=== PATIENT | male | born 1970 | race Caucasian/White ===

== ENCOUNTER 2017-03-27 19:12 | Emergency (ER) | payer SELFPAY ==
[2017-03-27 19:42] VITALS: BP 139/93
--- NOTE | 2017-03-27 20:33 | ER Document Report ---
HPI - HPI Patient complains to provider of: bilateral arm pain Onset: Other - months Onset/Duration: Persistent, Waxing and waning Quality of pain: Achy, Burning Pain Level: 5 Context: 46 yo male with hx cervical spine "problems" is c/o not being able to sleep due to Left medial elbow pain that radiates to cause fingertip numbness in left arm for months, also right wrist pain, intermittent numbness in fingers of right hand also. Used to see dr. rausch recently went to [facility] and was started on neurontin, ultram. He wants it fixed. He does not want to go to pain management, doesn't want to take mediation, but is asking for relief of pain tonight so he can sleep. No new symptoms. No chest pain or SOB. He is pettit and hx of neck and low back pain. Associated Symptoms: None Exacerbated by: Movement Relieved by: Denies - ROS ROS below otherwise negative: Yes Systems Reviewed and Negative: Yes All other systems reviewed and negative - DERM Skin Color: Normal Past Medical History - General Information source: Patient - Social History Smoking Status: Unknown if Ever Smoked Frequency of alcohol use: None Drug Abuse: None Occupation: [employer] Lives with: Spouse/Significant other Family History: Reviewed & Not Pertinent - Past Medical History Cardiac Medical History: Reports: Hx Coronary Artery Disease, Hx Hypercholesterolemia Pulmonary Medical History: Reports: Hx Bronchitis, Hx COPD, Hx Pneumonia Neurological Medical History: Denies: Hx Seizures Renal/ Medical History: Reports: Hx Kidney Stones. 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 IN LAST 30 DAYS: No - HEENT HEENT: Atraumatic - NECK Neck: Supple - non tender c spine, tender bilateral trapezius muscles - RESPIRATORY O2 Sat by Pulse Oximetry: 97 - MUSCULOSKELETAL/EXTREMETIES Musculoskeletal/Extremeties: MAEW, FROM, Tender - wrist wrist and see above. negative: Edema, Eccymosis - NEURO Level of Consciousness: Awake, Alert Motor/Sensory: No Motor Deficit, No Sensory Deficit - DERM Integumentary: Warm, Dry, No Rash Course - Vital Signs Vital signs: Temp Pulse Resp BP Pulse Ox 97.8 F 83 16 139/93 H 97 03/27/17 19:36 03/27/17 19:36 03/27/17 19:36 03/27/17 19:36 03/27/17 19:36 Discharge - Discharge Clinical Impression: chronic bilateral arm radiculopathy, chronic right wrist pain Condition: Good Disposition: HOME, SELF-CARE Instructions: Arthritis ([facility]), Radiculopathy ([facility]), Oral Narcotic Medication ( [facility]), Steroid Medication, Muscle Relaxers ([facility]), Family Physicians / Practices Additional Instructions: warm compress range of motion, stretching consider massage, accupuncture see family practice doctor for follow up, you may need another MR of the c spine see dr. rausch for follow up see [facility] Please complete the patient satisfaction survey if you get one, and return it.. If you do not receive a survey, then you can go to the [facility] website, [email or web address] and place your comments about your very good care. Thank you very much. It was a pleasure being your medical provider today. Prescriptions: Hydrocodone Bit/Acetaminophen [Hydrocodon-Acetaminophen 5-325] 1 - 2 each PO Q4HP PRN #15 tablet PRN Reason: Ibuprofen [Motrin 800 mg Tablet] 800 mg PO Q8HP PRN #30 tablet PRN Reason: Prednisone [Deltasone 10 mg Tablet] 10 mg PO ASDIR PRN #21 tablet PRN Reason: Referrals: ERICA RAUSCH MD [ACTIVE STAFF] - Follow up as needed [place] MATTHEWS MD [ACTIVE STAFF] - Follow up as needed
[2017-03-27] MEDS ORDERED: IBUPROFEN 800 MG TABLET PO ONE (20:54)
[2017-03-27] MEDS ORDERED: PREDNISONE 20 MG TABLET PO ONE (20:54)
[2017-03-27] MEDS ORDERED: ONDANSETRON 4 MG TAB.RAPDIS PO ONE (20:54)
[2017-03-27] MEDS ORDERED: MORPHINE SULFATE 10 MG/ML INJ IM ONE (20:54)
== END 2017-03-27 21:56 | disposition home or self-care (01) ==
LOC: ER 19:12
DX: G89.29 Other chronic pain (principal); M25.531 Pain in right wrist; M54.12 Radiculopathy, cervical region; M25.522 Pain in left elbow; I25.10 Atherosclerotic heart disease of native coronary artery without angina pectoris; J44.9 Chronic obstructive pulmonary disease, unspecified
CPT/HCPCS: 99283; 96372; S0119; J2270; J7512

== ENCOUNTER → 2017-06-28 | Day surgery (SDC) | payer OTHER ==
[~2017-06-28] MED LIST: DIAZEPAM 5 MG TABLET ONE
--- NOTE | 2017-06-28 14:31 | RADIOLOGY REPORT (SQ) ---
EXAM DESCRIPTION: ARTHRO WRIST INJECTION; FLUORO/NEEDLE PLACEMENT COMPLETED DATE/TIME: 06/28/2017 1:55 pm REASON FOR STUDY: RIGHT WRIST PAIN (M25.531) M25.531 PAIN IN RIGHT WRIST COMPARISON: None. FLUOROSCOPY TIME: 13 seconds. 1 images saved to PACS. LIMITATIONS: None. PROCEDURE: Procedure, risks, benefits and alternatives explained to patient who then gave written co nsent. The right wrist was marked and a time-out was called for correct marking verification. Radioc arpal site marked using fluoroscopic guidance. Wrist prepped and draped using sterile technique. Lo estefania anesthesia achieved using 1% lidocaine injection. Hypodermic needle introduced into the joint sp latosha under direct fluoroscopic visualization. Non-ionic contrast instilled to confirm intra-articular position. Dilute gadolinium solution then injected. Needle removed and entry site covered with steri le bandage. No immediate complications noted. TECHNIQUE: Digital images acquired during fluoroscopy and stored on PACS. Patient immediately take n to the MR suite for additional imaging. INJECTION LOCATION: Right wrist. CONTRAST TYPE AND AMOUNT: 1 mL Isovue-300 and 3 mL ProHance saline mixture. IMPRESSION: SUCCESSFUL NEEDLE PLACEMENT AND INJECTION FOR RIGHT WRIST MR ARTHROGRAM. COMMENT: Quality ID #[id number]: Final reports for procedures using fluoroscopy that document radiation exp osure indices, or exposure time and number of fluorographic images (if radiation exposure indices are not available) TECHNICAL DOCUMENTATION: JOB ID: [id number] [employer]- All Rights Reserved
--- NOTE | 2017-06-28 15:44 | RADIOLOGY REPORT (SQ) ---
EXAM DESCRIPTION: MRI RT UPPER JOINT WITH COMPLETED DATE/TIME: 06/28/2017 2:36 pm REASON FOR STUDY: RIGHT WRIST PAIN (M25.531) M25.531 PAIN IN RIGHT WRIST COMPARISON: None. TECHNIQUE: Right wrist post-arthrogram imaging includes T1 and T1 and T2 fat sat sequences. LIMITATIONS: Patient motion. FINDINGS: JOINT DISTENSION: Adequate. No loose body. BONE MARROW: No alteration of signal to suggest marrow replacement or edema. No occult fracture. No l arge osteophytes. CARPAL ALIGNMENT AND ARTICULATION: Small loose body radiocarpal joint volar margin. Subchondral cyst formation in the lunate centrally. Normal congruity of sigmoid notch at level of distal ruj without positive or negative ulnar variance. Normal capitolunate angle. No widening of scapholunate articula tion. SCAPHOLUNATE LIGAMENT: Intact as visualized. LUNATO-TRIQUETRAL LIGAMENT: Intact as visualized. TFC COMPLEX: Very small amount of contrast in the distal radioulnar joint. Subtle signal alteration of the triangular fibrocartilage is series 5, image 9 consistent with a small perforation. Extensor carpi ulnaris tendon normal without tendinopathy. EXTRINSIC LIGAMENTS AND DISTAL RADIO-ULNAR JOINT: Dorsal and volar distal RUJ ligaments intact withou t subluxation of the distal ulna with respect to the radius. 1-6 EXTENSOR COMPARTMENTS: Normal. Specifically no tendinopathy of the abductor pollicis longus or ex tensor pollicis brevis to suggest de Quervains syndrome. CARPAL TUNNEL AND MEDIAN NERVE: Limited evaluation due to the amount of motion on the axial sequence. No obvious abnormality. OTHER: No other significant finding. IMPRESSION: 1. Technical limitations due to motion. 2. Small tear of the triangular fibrocartilage. 3. Small loose body in the radiocarpal joint. TECHNICAL DOCUMENTATION: JOB ID: [id number] [employer]- All Rights Reserved
== END ==
LOC: RAD 12:22
PROVIDERS: ATTEND Orthopaedic Surgery
PROC: BP0LZZZ Plain Radiography of Right Wrist (ICD-10-PCS; principal; 2017-06-28)
DX: M25.531 Pain in right wrist (principal); M24.031 Loose body in right wrist; S63.591A Other specified sprain of right wrist, initial encounter; X58.XXXA Exposure to other specified factors, initial encounter
CPT/HCPCS: 73222; 25246; 77002; A9576

== ENCOUNTER 2017-08-04 16:12 | Emergency (ER) | payer OTHER ==
[2017-08-04] MEDS ORDERED: LIDOCAINE 1% INJ-PF (10 MG/ML) 30 ML SDV INJ ONE (17:16)
[2017-08-04] MEDS ORDERED: HYDROCODONE/ACETAMINOPHEN 5-325 MG 6 TAB/DSPK PO PRN (17:19)
[2017-08-04] MEDS ORDERED: DOXYCYCLINE HYCLATE 100 MG TABLET PO ONE (17:19)
[2017-08-04] MEDS ORDERED: DIPH/PERTUSS(ACELL)/TETANUS VAC/PF 0.5 ML SYR (>=10YO) IM ONE (17:19)
--- NOTE | 2017-08-04 17:21 | ER Document Report ---
ED Hand/Wrist Injury - General Chief Complaint: Laceration Stated Complaint: FINGER PAIN Time Seen by Provider: 08/04/17 16:51 Mode of Arrival: Ambulatory Information source: Patient Notes: 47-year-old male presents to ED for complaint of pain to his second and third finger of his left hand. He states he was working with iron and the iron came down and slammed on his hand when the pressure working with him let it go. The bleeding is controlled at this time he does have 2 large flap lacerations to the second and third finger. TRAVEL OUTSIDE OF THE [place] IN LAST 30 DAYS: No - HPI Injury to: Index finger, Middle finger Onset: Just prior to arrival Where: Public place, Work Timing: Still present Quality of pain: Sharp, Throbbing Severity: Moderate Pain Level: 3 Context: Crush - Related Data Allergies/Adverse Reactions: Penicillins Allergy (Verified 08/04/17 16:27) Past Medical History - General Information source: Patient - Social History Smoking Status: Current Every Day Smoker Cigarette use (# per day): Yes - ppd Chew tobacco use (# tins/day): No Smoking Education Provided: Yes - less than 1 min Frequency of alcohol use: None Drug Abuse: None Occupation: arc welder Lives with: Spouse/Significant other Family History: Arthritis, CAD, COPD, DM, Hyperlipidemia, Hypertension Patient has suicidal ideation: No Patient has homicidal ideation: No - Past Medical History Cardiac Medical History: Reports: Hx Coronary Artery Disease, Hx Hypercholesterolemia Pulmonary Medical History: Reports: Hx Bronchitis, Hx COPD, Hx Pneumonia EENT Medical History: Reports: None Neurological Medical History: Reports: None Endocrine Medical History: Reports: None Renal/ Medical History: Reports: Hx Kidney Stones Malignancy Medical History: Reports None GI Medical History: Reports: Hx Gastroesophageal Reflux Disease, Hx Endoscopy Musculoskeltal Medical History: Reports 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, Reports Hx Musculoskeletal Trauma Skin Medical History: Reports None Psychiatric Medical History: Reports: None Traumatic Medical History: Reports: Hx Fractures - left 5th finger Infectious Medical History: Reports: None Past Surgical History: Reports: Hx Cardiac Catheterization, Hx Orthopedic Surgery - corrective surgery for feet - Immunizations Immunizations up to date: Yes Hx Diphtheria, Pertussis, Tetanus Vaccination: Yes - 08/04/17 Review of Systems - Review of Systems Constitutional: No symptoms reported EENT: No symptoms reported Cardiovascular: No symptoms reported Respiratory: No symptoms reported Gastrointestinal: No symptoms reported Genitourinary: No symptoms reported Male Genitourinary: No symptoms reported Musculoskeletal: Other - pain in 2 and 3 finger left hand Skin: Other - flap laceration to 2nd and 3rd finger left hand Hematologic/Lymphatic: No symptoms reported Neurological/Psychological: No symptoms reported -: Yes All other systems reviewed and negative Physical Exam - Vital signs Vitals: Temp Pulse Resp BP Pulse Ox 97.9 F 78 18 151/89 H 99 08/04/17 16:27 08/04/17 16:27 08/04/17 16:27 08/04/17 16:27 08/04/17 16:27 Interpretation: Normal - General General appearance: Appears well, Alert - HEENT Head: Normocephalic, Atraumatic Eyes: Normal Pupils: PERRL - Respiratory Respiratory status: No respiratory distress Chest status: Nontender Breath sounds: Normal Chest palpation: Normal - Cardiovascular Rhythm: Regular Heart sounds: Normal auscultation Murmur: No - Abdominal Inspection: Normal Distension: No distension Bowel sounds: Normal Tenderness: Nontender Organomegaly: No organomegaly - Back Back: Normal, Nontender - Extremities General upper extremity: Normal inspection, Nontender, Normal color, Normal ROM , Normal temperature General lower extremity: Normal inspection, Nontender, Normal color, Normal ROM , Normal temperature, Normal weight bearing. No: Iker's sign Hand: Tender, No evidence of human bite, No evidence of FB, Swelling, Other - left 2nd and 3rd finger flap lacerations - Neurological Neuro grossly intact: Yes Cognition: Normal Orientation: AAOx4 [place] Coma Scale Eye Opening: Spontaneous [place] Coma Scale Verbal: Oriented [place] Coma Scale Motor: Obeys Commands [place] Coma Scale Total: 15 Speech: Normal Motor strength normal: LUE, RUE, LLE, RLE Sensory: Normal - Psychological Associated symptoms: Normal affect, Normal mood - Skin Skin Temperature: Warm Skin Moisture: Dry Skin Color: Normal Skin irregularity: Laceration - left 2nd and 3rd finger flap lacerations Location of irregularity: Extremities Irregularity with: Swelling, Tenderness Course - Re-evaluation Re-evalutation: 08/04/17 19:17 Patient treated with Tdap, doxycycline, and sutures soaked first with Betadine then cleaned well with Betadine and then scrubbed with scrub brush and surgical scrub after using lidocaine to numb both fingers. Patient tolerated procedures well. Protective splint applied to the index finger as it was across one joint and at the end of his finger. - Vital Signs Vital signs: Temp Pulse Resp BP Pulse Ox 97.9 F 84 16 131/81 H 96 08/04/17 16:27 08/04/17 19:08 08/04/17 19:08 08/04/17 19:08 08/04/17 19:08 - Diagnostic Test Radiology reviewed: Image reviewed, Reports reviewed Procedures - Immobilization Left Finger 2nd digit Time completed: 19:14 Immobilizer type: Finger protection Performed by: PCT Post-Proc Neuro Vasc Exam: Normal Alignment checked and good: Yes - Laceration/Wound Repair Left Finger 2nd digit Time completed: 19:14 Wound length (cm): 2.5 - 2nd one 3 cm Wound's Depth, Shape: Irregular, Flap Laceration pre-procedure: Sterile PPE donned, Sterile drapes applied, Shur- Clens applied Anesthetic type: 1% Lidocaine Volume Anesthetic (mLs): 5 Wound explored: No foreign body removed, Contaminated Irrigated w/ Saline (mLs): 250 Wound Repaired With: [place] Suture Size/Type: 4:0, Ethilon Number of Sutures: 5 - 2nd one 6 sutures Layer Closure?: No Post-procedure wound care: Sterile dressing applied, Splint applied Post-procedure NV exam normal: Yes Complications: No Left Finger 3rd digit Time completed: 19:16 Wound length (cm): 2 Wound's Depth, Shape: Irregular, Flap Laceration pre-procedure: Sterile PPE donned, Betadine prep applied, Sterile drapes applied, Shur-Clens applied Anesthetic type: 1% Lidocaine Volume Anesthetic (mLs): 3 Wound explored: No foreign body removed, Contaminated Irrigated w/ Saline (mLs): 200 Wound Repaired With: Sutures Suture Size/Type: 4:0, Ethilon Number of Sutures: 4 Layer Closure?: No Post-procedure wound care: Sterile dressing applied Post-procedure NV exam normal: Yes Complications: No Discharge - Discharge Clinical Impression: left 2nd finger laceration , Left third finger laceration Condition: Stable Disposition: HOME, SELF-CARE Instructions: Family Physicians / Practices Additional Instructions: Hand Laceration A laceration on the hand can present special problems. It may be difficult to keep the wound dry. Motion of the fingers can disturb the healing edges. Your work may involve exposure to damaging chemicals or water. Keep the wound clean and dry. If you can't keep the cut dry, undisturbed, and free of chemical exposure, please discuss this with the doctor. If any water or chemical gets onto the dressing, remove it, blot the wound dry, then apply a fresh bandage. Dressings should be changed every day. If you feel the stitches pulling as you move the hand, a splint or other form of protection is needed. If any signs of infection occur (swelling, redness, increasing tenderness, red streaks, tender lumps in the armpit, or fever), see the doctor immediately. LACERATION CARE: Your laceration has been sutured to keep the skin edges aligned during healing. The time of suture removal depends on the nature and location of your cut. Please follow the care instructions the doctor has outlined for you and return for further care, according to the schedule you've been given. Keep the wound and dressing clean. Unless you were told otherwise, you may shower daily, blotting the wound dry with a clean, unused towel. At other times, If the dressing gets wet or blood soaked, remove it and blot the wound dry, then reapply a new dressing. Unless you were instructed otherwise, dressings should be changed at least daily. If any signs of infection occur (swelling, redness, drainage, increasing tenderness, red streaks, tender lumps in the armpit or groin above the laceration, or fever), see the doctor immediately. SOAP CLEANSING: Gently wash the wound daily using a mild soap (like Ivory, Phisoderm, Neutrogena). Use warm water, rubbing gently until all debris, ooze, and crusting have been washed from the wound. Allow to dry briefly (about 10 minutes) after cleaning. Repeat this cleansing at least three times a day for the first two days and then once or twice a day. ANTIBIOTIC OINTMENT PROTECTION: Your wounds are such that dressing them is not practical or optional. After cleansing, you should apply a thin coating of antibiotic ointment ( Bacitracin, not Neosporin) to the wounds at least three times daily. This lessens infection risk, and may decrease the amount of scarring. Use a q-tip or dull butter knife, not your finger, to apply this ointment. Any debris or ooze which builds up in the ointment should be gently rubbed off with a sterile gauze pad. Harder crusting may need to be gently scrubbed off with a clean wash cloth with soap and warm water, perhaps applying a warm, wet wash cloth to the wound for ten minutes first. Development of redness, severe itching, or blistering may mean allergy to the ointment. See the doctor. TETANUS IMMUNIZATION GIVEN: You have been given an immunization against tetanus. Please record this in your records. In general, a booster is needed only once every 10 years. The tetanus shot protects against tetanus or "lockjaw," which is a complication of certain wound infections (the tetanus shot cannot protect against the actual infection). The immunization site may become warm and red due to local reaction. If this occurs, apply warm compresses and take aspirin or ibuprofen to reduce inflammation and discomfort. Return for evaluation if the reaction becomes severe. Cephalexin The antibiotic you've been prescribed is a member of the cephalosporin class. This type of antibiotic covers a wide variety of infections, including those of the skin, lungs, and urinary tract. It's useful for staph infections. This antibiotic is slightly similar to the penicillin family. In rare cases , a person who is allergic to penicillin will also be allergic to this medication. If you have had a severe allergic reaction to penicillin, and have not taken this antibiotic since that time, notify your doctor. Antibiotics which cover many germs ("broad spectrum" antibiotics) are more likely to cause diarrhea or "yeast" infections. Women prone to vaginal yeast problems may suffer an attack after taking this antibiotic. In infants, oral thrush (white spots "stuck" on the cheek) or yeast diaper rash may result. See your doctor if these problems occur. Call at once if you develop itching, hives , shortness of breath, or lightheadedness. FOLLOW-UP CARE: Please return in __3___ days for an infection check and dressing change. Your sutures should be removed in __9___ days. To facilitate a timely removal of your sutures, you may return to the Emergency Department at [facility]. You do not need to call for an appointment, but the best time to come in for suture removal is early in the morning. If you have been referred to another physician for follow-up care, call that physicians office for an appointment as you were instructed. If you experience a significant change in your laceration, or if you are concerned there may be an infection (swelling, redness, drainage, increasing tenderness, red streaks, tender lumps in the armpit or groin above the laceration, or fever) , return to the Emergency Department immediately re-evaluation. Prescriptions: Cephalexin Monohydrate [Keflex 500 mg Capsule] 500 mg PO Q6H 5 Days capsule Forms: Elevated Blood Pressure, Smoking Cessation Education, Return to Work
--- NOTE | 2017-08-04 17:41 | RADIOLOGY REPORT (SQ) ---
EXAM DESCRIPTION: HAND LEFT 3 VIEWS COMPLETED DATE/TIME: 08/04/2017 5:32 pm REASON FOR STUDY: pain and injury to 2nd and 3rd fonger COMPARISON: None. EXAM PARAMETERS: NUMBER OF VIEWS: Three views. TECHNIQUE: AP, lateral and oblique radiographic images acquired of the left hand. LIMITATIONS: None. FINDINGS: MINERALIZATION: Normal. BONES: No acute fracture or dislocation. No worrisome bone lesions. JOINTS: No effusions. SOFT TISSUES: No soft tissue swelling. No foreign body. OTHER: No other significant finding. IMPRESSION: NEGATIVE STUDY OF THE LEFT HAND. NO RADIOGRAPHIC EVIDENCE OF ACUTE INJURY. TECHNICAL DOCUMENTATION: JOB ID: [id number] [employer]- All Rights Reserved
[2017-08-04 19:22] VITALS: BP 131/81
== END 2017-08-04 19:22 | disposition home or self-care (01) ==
LOC: ER 16:12
PROC: 0HQGXZZ Repair Left Hand Skin, External Approach (ICD-10-PCS; principal; 2017-08-04)
DX: S61.213A Laceration without foreign body of left middle finger without damage to nail, initial encounter (principal); S61.211A Laceration without foreign body of left index finger without damage to nail, initial encounter; X58.XXXA Exposure to other specified factors, initial encounter; F17.210 Nicotine dependence, cigarettes, uncomplicated
CPT/HCPCS: 99283; 90471; 73130; 90715; 12002; J3490

== ENCOUNTER 2017-08-13 12:28 | Emergency (ER) | payer OTHER ==
[2017-08-13 12:33] VITALS: BP 130/84
--- NOTE | 2017-08-13 13:01 | ER Document Report ---
HPI - HPI Pain Level: 3 Notes: Patient presents the ED for suture removal status post having 15 sutures placed to his first and second digit from an injury 9 days ago. Patient states that he has been keeping it covered and he has been able to work without any difficulties. He has been using the finger splint without any problems. Patient was placed on antibiotics and given Tdap prior to discharge and initial visit. No other concerns or complaints at this time. Denies any headache, fever, chest pain, palpitations, syncope, cough, shortness of breath, wheeze, dyspnea, abdominal pain, nausea/vomiting/diarrhea, or rash. - ROS Notes: REVIEW OF SYSTEMS: CONSTITUTIONAL : Denies fever, chills, or sweats. Denies recent illness. CARDIOVASCULAR: Denies chest pain. Denies palpitations or racing or irregular heart beat. Denies ankle edema. RESPIRATORY: Denies cough, cold, or chest congestion. Denies shortness of breath, difficulty breathing, or wheezing. GASTROINTESTINAL: Denies abdominal pain or distention. Denies nausea, vomiting , or diarrhea. Denies blood in vomitus, stools, or per rectum. Denies black, tarry stools. Denies constipation. GENITOURINARY: Denies difficulty urinating, painful urination, burning, frequency, blood in urine, or discharge. MUSCULOSKELETAL: see hpi SKIN: see hpi NEUROLOGICAL: Denies confusion or altered mental status. Denies passing out or loss of consciousness. Denies dizziness or lightheadedness. Denies headache. Denies weakness or paralysis or loss of use of either side. Denies problems with gait or speech. Denies sensory loss, numbness, or tingling. ALL OTHER SYSTEMS REVIEWED AND NEGATIVE. Dictation was performed using [employer] voice recognition software - DERM Skin Color: Normal Past Medical History - Social History Smoking Status: Unknown if Ever Smoked Frequency of alcohol use: None Drug Abuse: None Family History: Arthritis, CAD, COPD, DM, Hyperlipidemia, Hypertension - Past Medical History Cardiac Medical History: Reports: Hx Coronary Artery Disease, Hx Hypercholesterolemia Pulmonary Medical History: Reports: Hx Bronchitis, Hx COPD, Hx Pneumonia Neurological Medical History: Denies: Hx Seizures Renal/ Medical History: Reports: Hx Kidney Stones. 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 LUNGS: Breath sounds clear to auscultation bilaterally and equal. No wheezes rales or rhonchi. HEART: Regular rate and rhythm without murmurs, rubs, gallops. Musculoskeletal: Lt 2nd/3rd digits: FROM to passive/active. Strength 5+/5. No focal deficits. sensation intact. Extremities: No cyanosis, clubbing, or edema b/l. Peripheral pulses 2+. Capillary refill less than 3 seconds. PSYCH: Normal mood, normal affect. SKIN: see MSK exam. Warm, Dry, normal turgor, no rashes or lesions noted. - INFECTION CONTROL TRAVEL OUTSIDE OF THE [place] IN LAST 30 DAYS: No - RESPIRATORY O2 Sat by Pulse Oximetry: 98 Course - Re-evaluation Re-evalutation: 08/13/17 13:00 Patient is an afebrile, well-hydrated, 47-year-old male who presents the ED for suture removal. The wound appears well-healed. Sutures were removed without any complications. No signs of infection present. Patient has 2 days left of the antibiotic that he is to finish. There is no neurovascular compromise or tendon compromise noted today. Conservative measures for symptoms as reviewed. Recheck with your PCM as needed. Consider consult with orthopedics/physical therapy for any ongoing/worsening symptoms. Return to the ED with any worsening /concerning symptoms otherwise as reviewed discharge. Patient is in agreement. - Vital Signs Vital signs: Temp Pulse Resp BP Pulse Ox 98.4 F 87 16 130/84 H 98 08/13/17 12:31 08/13/17 12:31 08/13/17 12:31 08/13/17 12:31 08/13/17 12:31 Discharge - Discharge Clinical Impression: Encounter for removal of sutures Condition: Stable Disposition: HOME, SELF-CARE Instructions: Suture Removal Additional Instructions: Rest, Ice (for any swelling) Tylenol/ibuprofen as needed Light stretches daily Strength exercises as able Moist heat and massage may help F/u with your PCP in 2-3 days for a recheck or as needed Call Orthopedics/physical therapy for ongoing/worsening of symptoms. Return to the ED with any worsening symptoms and/or development of fever, headache, chest pain, palpitations, syncope, shortness of breath, trouble breathing, abdominal pain, n/v/d, muscle weakness/paralysis, numbness/tingling, swelling, redness, or other worsening symptoms that are concerning to you. Forms: Elevated Blood Pressure Referrals: [facility] ([facility]) [Provider Group] - Follow up in 3-5 days
== END 2017-08-13 13:09 | disposition home or self-care (01) ==
LOC: ER 12:28
DX: S69.92XD Unspecified injury of left wrist, hand and finger(s), subsequent encounter (principal); X58.XXXD Exposure to other specified factors, subsequent encounter; I25.10 Atherosclerotic heart disease of native coronary artery without angina pectoris; J44.9 Chronic obstructive pulmonary disease, unspecified

== ENCOUNTER 2017-12-01 13:14 | Emergency (ER) | payer OTHER ==
[2017-12-01] MEDS ORDERED: ASPIRIN 81 MG TABLET, CHEWABLE PO ONE ×2 (14:48→14:49)
--- NOTE | 2017-12-01 14:53 | ER Document Report ---
ED Medical Screen (RME) - General Chief Complaint: Chest Pain Stated Complaint: CHEST PAIN Time Seen by Provider: 12/01/17 14:47 Mode of Arrival: Wheelchair Information source: Patient Notes: Pt is a 47 year old male who presents to the ER today for chest pain across his chest with coughing that started Wednesday, cough started before that. But then he states "I cough all the time." He's a daily smoker, huge history of heart disease in his family. admits to sob, denies nausea/vomiting. TRAVEL OUTSIDE OF THE [place] IN LAST 30 DAYS: No - Related Data Allergies/Adverse Reactions: Penicillins Allergy (Verified 12/01/17 13:20) Past Medical History - General Information source: Patient - Past Medical History Cardiac Medical History: Reports: Hx Coronary Artery Disease, Hx Hypercholesterolemia Pulmonary Medical History: Reports: Hx Bronchitis, Hx COPD, Hx Pneumonia Neurological Medical History: Denies: Hx Seizures Renal/ Medical History: Reports: Hx Kidney Stones. Denies: Hx Peritoneal Dialysis GI Medical History: Reports: Hx Gastroesophageal Reflux Disease, Hx Endoscopy Musculoskeltal Medical History: Reports Hx Musculoskeletal Deformity - pidgeon feet as , Reports Hx Musculoskeletal Trauma Traumatic Medical History: Reports: Hx Fractures - left 5th finger Past Surgical History: Reports: Hx Cardiac Catheterization, Hx Orthopedic Surgery - corrective surgery for feet - Immunizations Immunizations up to date: Yes Hx Diphtheria, Pertussis, Tetanus Vaccination: Yes - 08/04/17 Review of Systems - Review of Systems Cardiovascular: See HPI Respiratory: See HPI Physical Exam - Vital signs Vitals: Temp Pulse Resp BP Pulse Ox 98.4 F 69 16 131/82 H 97 12/01/17 13:34 12/01/17 13:34 12/01/17 13:34 12/01/17 13:34 12/01/17 13:34 - Notes Notes: General: well appearing, nad CV: RRR, no murmurs, nontender to palpation Course - Vital Signs Vital signs: Temp Pulse Resp BP Pulse Ox 98.4 F 69 16 131/82 H 97 12/01/17 13:34 12/01/17 13:34 12/01/17 13:34 12/01/17 13:34 12/01/17 13:34
[2017-12-01 15:38] LABS: ABSOLUTE BASOPHILS # (AUTO) 0.1 10^3/uL (0.0-0.2); ABSOLUTE EOSINOPHILS # (AUTO) 0.3 10^3/uL (0.0-0.6); ABSOLUTE LYMPHOCYTES (AUTO) 2.3 10^3/uL (0.5-4.7); ABSOLUTE MONOCYTES (AUTO) 0.7 10^3/uL (0.1-1.4); ABSOLUTE NEUT (AUTO) 4.8 10^3/uL (1.7-8.2); BASOPHILS % (AUTO) 0.7 % (0-2); EOSINOPHILS % (AUTO) 4.2 % (0-6); HEMATOCRIT 47.6 % (37.9-51.0); HEMOGLOBIN 16.8 g/dL (13.5-17.0); LYMPHOCYTES % (AUTO) 27.6 % (13-45); MEAN CORPUSCULAR HGB CONC 35.3 g/dL (32.0-36.0); MEAN CORPUSCULAR VOLUME 85 fl (80-97); MONOCYTES % (AUTO) 8.4 % (3-13); PLATELET COUNT 158 10^3/uL (150-450); RED CELL DISTRIBUTION WIDTH 14.8 % (11.5-14.0); SEGMENTED NEUTROPHILS % (AUTO) 59.1 % (42-78); TOTAL CELLS COUNTED % (AUTO) 100 %; WHITE BLOOD COUNT 8.2 10^3/uL (4.0-10.5)
[2017-12-01 15:49] LABS: APPEARANCE,URINE CLEAR; BILIRUBIN,URINE NEGATIVE (NEGATIVE); COLOR,URINE STRAW; GLUCOSE, URINE NEGATIVE (NEGATIVE); KETONES,URINE NEGATIVE (NEGATIVE); LEUKOCYTE ESTERASE,URINE TRACE (NEGATIVE); NITRITE,URINE NEGATIVE (NEGATIVE); PROTEIN,URINE NEGATIVE (NEGATIVE); URINE SPECIFIC GRAVITY 1.011; UROBILINOGEN,URINE NEGATIVE mg/dL (<2.0)
[2017-12-01 16:00] LABS: ALANINE AMINOTRANSFERASE 39 U/L (21-72); ALBUMIN 4.8 g/dL (3.5-5.0); ALKALINE PHOSPHATASE 68 U/L (38-126); ANION GAP 14 (5-19); ASPARTATE AMINO TRANSFERASE 26 U/L (17-59); BILIRUBIN,DIRECT 0.2 mg/dL (0.0-0.4); BILIRUBIN,TOTAL 0.6 mg/dL (0.2-1.3); BLOOD UREA NITROGEN 16 mg/dL (7-20); CALCIUM 10.1 mg/dL (8.4-10.2); CARBON DIOXIDE 24 mmol/L (22-30); CHLORIDE 104 mmol/L (98-107); CREATINE KINASE 342 U/L (55-170); GLUCOSE 94 mg/dL (75-110); LIPASE 100.6 U/L (23-300); POTASSIUM 4.3 mmol/L (3.6-5.0); SODIUM 141.8 mmol/L (137-145); TOTAL PROTEIN 7.6 g/dL (6.3-8.2)
[2017-12-01 16:15] LABS: TROPONIN I < 0.012 ng/mL
--- NOTE | 2017-12-01 16:33 | RADIOLOGY REPORT (SQ) ---
EXAM DESCRIPTION: CHEST PA/LAT COMPLETED DATE/TIME: 12/01/2017 4:18 pm REASON FOR STUDY: chest pain with cough, sob COMPARISON: 05/27/2015. EXAM PARAMETERS: NUMBER OF VIEWS: two views TECHNIQUE: Digital Frontal and Lateral radiographic views of the chest acquired. RADIATION DOSE: NA LIMITATIONS: none FINDINGS: LUNGS AND PLEURA: No opacities, masses or pneumothorax. No pleural effusion. MEDIASTINUM AND HILAR STRUCTURES: No masses or contour abnormalities. HEART AND VASCULAR STRUCTURES: Heart normal size. No evidence for failure. BONES: No acute findings. HARDWARE: None in the chest. OTHER: No other significant finding. IMPRESSION: NO SIGNIFICANT RADIOGRAPHIC FINDING IN THE CHEST. TECHNICAL DOCUMENTATION: JOB ID: [id number] [employer]- All Rights Reserved
--- NOTE | 2017-12-01 18:32 | EKG REPORT ---
SEVERITY:- NORMAL ECG - SINUS RHYTHM : Confirmed by: Alexandre Gaviria MD 01-Dec-2017 18:31:27
[2017-12-01] MEDS ORDERED: METHYLPREDNISOLONE INJ 125 MG/2 ML SDV IV ONE (21:24)
[2017-12-01] MEDS ORDERED: IPRATROPIUM/ALBUTEROL 0.5-2.5 MG/3 ML AMPUL NEB ONE (21:24)
--- NOTE | 2017-12-01 21:32 | ER Document Report ---
ED Cardiac - General Mode of Arrival: Wheelchair Information source: Patient TRAVEL OUTSIDE OF THE [place] IN LAST 30 DAYS: No - HPI Patient complains to provider of: Chest pain, Shortness of breath Chest pain location: Substernal Cardiac risk factors: Smoker, Dyslipidemia Associated symptoms: Other - see notes above Exacerbated by: Torso movement <LYNDSEY LINN - Last Filed: 12/02/17 02:40> <GLORIA CONDE - Last Filed: 12/02/17 03:42> - General Chief Complaint: Chest Pain Stated Complaint: CHEST PAIN Time Seen by Provider: 12/01/17 14:47 Notes: 47 year old male with history of dyslipidemia and emphysema presents to the ED complaining of shortness of breath and sternal chest pain that started 2 days ago which radiates to the left lower ribs and stomach. Patient additionally complains of dizziness, cough which is worse in the morning, and hot and cold flashes. Patient's chest pain and shortness of breath is exacerbated with movement and exertion. Patient reports that he passed out while getting his x- ray done earlier today in the ED secondary to his shortness of breath. PCP: Dr. Edwards (LYNDSEY LINN) - Related Data Allergies/Adverse Reactions: Penicillins Allergy (Verified 12/01/17 13:20) Past Medical History - General Information source: Patient - Social History Smoking Status: Current Every Day Smoker Frequency of alcohol use: None Drug Abuse: None Family History: Arthritis, CAD, COPD, DM, Hyperlipidemia, Hypertension Patient has suicidal ideation: No Patient has homicidal ideation: No - Past Medical History Cardiac Medical History: Reports: Hx Coronary Artery Disease, Hx Hypercholesterolemia Pulmonary Medical History: Reports: Hx Bronchitis, Hx COPD, Hx Pneumonia, Other - Emphysema Neurological Medical History: Denies: Hx Seizures Renal/ Medical History: Reports: Hx Kidney Stones. 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, Reports Hx Musculoskeletal Trauma Traumatic Medical History: Reports: Hx Fractures - left 5th finger Past Surgical History: Reports: Hx Cardiac Catheterization - negative in 2011, Hx Orthopedic Surgery - corrective surgery for feet - Immunizations Immunizations up to date: Yes Hx Diphtheria, Pertussis, Tetanus Vaccination: Yes - 08/04/17 <LYNDSEY LINN - Last Filed: 12/02/17 02:40> Review of Systems - Review of Systems Constitutional: See HPI, Other - Hot and cold flashes EENT: No symptoms reported Cardiovascular: See HPI, Chest pain, Dizziness Respiratory: See HPI, Cough, Short of breath Gastrointestinal: No symptoms reported Genitourinary: No symptoms reported Male Genitourinary: No symptoms reported Musculoskeletal: No symptoms reported Skin: No symptoms reported Hematologic/Lymphatic: No symptoms reported Neurological/Psychological: No symptoms reported -: Yes All other systems reviewed and negative <LYNDSEY LINN - Last Filed: 12/02/17 02:40> Physical Exam - General General appearance: Alert In distress: None - HEENT Head: Normocephalic, Atraumatic Eyes: Normal Extraocular movements intact: Yes Pupils: PERRL - Respiratory Respiratory status: Tachypnea - with movement Chest status: Tender - see below Breath sounds: Decreased air movement - bilaterally Chest palpation: Tender - reproducible anterior chest wall tenderness to palpation. No: Normal - Cardiovascular Rhythm: Regular Heart sounds: Normal auscultation - Abdominal Inspection: Normal - Back Back: Normal - Extremities General upper extremity: Normal inspection, Normal ROM General lower extremity: Normal inspection, Normal ROM - Neurological Neuro grossly intact: Yes Cognition: Normal Orientation: AAOx4 [place] Coma Scale Eye Opening: Spontaneous [place] Coma Scale Verbal: Oriented [place] Coma Scale Motor: Obeys Commands [place] Coma Scale Total: 15 Speech: Normal - Psychological Associated symptoms: Normal affect, Normal mood - Skin Skin Temperature: Warm Skin Moisture: Dry Skin Color: Normal <LYNDSEY LINN - Last Filed: 12/02/17 02:40> - Vital signs Vitals: Temp Pulse Resp BP Pulse Ox 98.4 F 69 16 131/82 H 97 12/01/17 13:34 12/01/17 13:34 12/01/17 13:34 12/01/17 13:34 12/01/17 13:34 Course - Laboratory Result Diagrams: 12/01/17 15:20 12/01/17 15:20 <LYNDSEY LINN - Last Filed: 12/02/17 02:40> - Laboratory Result Diagrams: 12/01/17 15:20 12/01/17 15:20 - Diagnostic Test Radiology reviewed: Reports reviewed - EKG Interpretation by Wy EKG shows normal: Sinus rhythm Rate: Normal Rhythm: NSR <GLORIA CONDE - Last Filed: 12/02/17 03:42> - Re-evaluation Re-evalutation: 12/02/17 00:14 Patient revaluated and is breathing better and able to move more air. (LYNDSEY LINN) 12/02/17 02:06 Patient is a 47-year-old male who comes in complaining of chest pain that is worse with movement and breathing. Patient states that he is had chest pain like this for a while. Patient is a pettit. Reproducible chest wall tenderness to palpation. Troponin negative 2. No acute findings on EKG. Patient with no acute findings on CTA. Pain is improved with pain medication. Patient has been prescribed medications for COPD in the past but he is not been able to afford them. After nebulizer treatment and steroids, patient is able to ambulate without difficulty, maintains his oxygen saturation at 97% and has not become tachycardic. He is not having any dyspnea on exertion after nebulizer treatments. I do not think that there is underlying heart failure, but I would like the patient to follow-up with cardiology. He does not meet admission criteria and I do not think that he warrants an inpatient echocardiogram. Patient would prefer not to stay in the hospital. He will return if he has any worsening or concerning symptoms. Stable for discharge. Understands and agrees with plan. (GLORIA CONDE) - Vital Signs Vital signs: Temp Pulse Resp BP Pulse Ox 98.3 F 69 16 131/77 H 97 12/02/17 00:01 12/01/17 13:34 12/02/17 01:44 12/02/17 01:44 12/02/17 01:44 - Laboratory Laboratory results interpreted by me: 12/01/17 12/01/17 12/01/17 15:20 15:20 15:20 RBC 5.60 H RDW 14.8 H Creatine Kinase 342 H Ur Leukocyte Esterase TRACE H Discharge <LYNDSEY LINN - Last Filed: 12/02/17 02:40> <GLORIA CONDE - Last Filed: 12/02/17 03:42> - Discharge Clinical Impression: Chest wall pain, Bronchospasm, acute Condition: Stable Disposition: HOME, SELF-CARE Instructions: Bronchospasm ([facility]), Chest Wall Pain ([facility]), Inhaled Bronchodilators ([facility]) Prescriptions: Albuterol Sulfate [Proair HFA Inhalation Aerosol 8.5 gm MDI] 2 puff IH Q4H PRN # 1 mdi PRN Reason: Ipratropium/Albuterol Sulfate [Duoneb 3 ml Ampul] 3 ml NEB RTQ3HP PRN #30 vial.neb PRN Reason: Nebulizer [Nebulizer Machine] 1 each MC ASDIR PRN #1 kit PRN Reason: Oxycodone HCl/Acetaminophen [Percocet 5-325 mg Tablet] 1 - 2 tab PO Q4H PRN #15 tablet PRN Reason: Prednisone 60 mg PO DAILY #12 tablet Tiotropium [place] [Spiriva] 18 mcg IH DAILY #30 cap.w.dev Forms: Smoking Cessation Education, Return to Work Referrals: DANIEL STOKES MD [ACTIVE STAFF] - Follow up in 3-5 days HAILEE STEEL MD [ACTIVE STAFF] - Follow up in 1 week Scribe Attestation: 12/02/17 03:42 I personally performed the services described in the documentation, reviewed and edited the documentation which was dictated to the scribe in my presence, and it accurately records my words and actions. (GLORIA CONDE) Scribe Documentation - Scribe Written by Vito:: Vito Medina, 12/01/2017 2228 acting as scribe for :: Nathaniel <LYNDSEY LINN - Last Filed: 12/02/17 02:40>
--- NOTE | 2017-12-01 22:27 | RADIOLOGY REPORT (SQ) ---
EXAM DESCRIPTION: CTA CHEST COMPLETED DATE/TIME: 12/01/2017 10:01 pm REASON FOR STUDY: Chest pain, dyspnea. Shortness of breath. COMPARISON: Chest x-ray 12/01/2017, CT angiogram chest 07/06/2011. TECHNIQUE: CT scan of the chest performed using helical scanning technique with dynamic intravenous contrast injection. Images reviewed with lung, soft tissue and bone windows. Reconstructed coronal and sagittal MPR images reviewed. Additional 3 dimensional post-processing performed to develop Maximal Intensity Projection images (IL P). All images stored on PACS. All CT scanners at this facility use dose modulation, iterative reconstruction, and/or weight based d osing when appropriate to reduce radiation dose to as low as reasonably achievable (ALARA). [facility]: Dose Right [facility]: CareDose [facility]: Dose Right [facility]: Teradose 4D [facility]: tradeNOW CONTRAST TYPE AND DOSE: contrast/concentration: Isovue 370.00 mg/ml; Total Contrast Delivered: 80.0 ml; Total Saline Delivered: 70.1 ml Contrast bolus optimized for the pulmonary arteries. Not diagnostic for the aorta. RENAL FUNCTION: Creatinine 0.96 RADIATION DOSE: CT Rad equipment meets quality standard of care and radiation dose reduction techniq ues were employed. CTDIvol: 29.5 mGy. DLP: 1070 mGy-cm. . LIMITATIONS: None. FINDINGS: LUNGS AND PLEURA: No consolidation, pleural effusion or pneumothorax. AORTA AND GREAT VESSELS: No thoracic aortic aneurysm. Contrast bolus not optimized for the aorta. HEART: No pericardial effusion. No significant coronary artery calcifications. PULMONARY ARTERIES: No emboli visualized in the main pulmonary arteries or the segmental branches. HILAR AND MEDIASTINAL STRUCTURES: No identified masses or abnormal nodes. HARDWARE: None in the chest. UPPER ABDOMEN: No significant findings. Limited exam. THYROID AND OTHER SOFT TISSUES: The visualized thyroid gland is unremarkable. BONES: No acute findings. 3D MIPS: Confirm above findings. IMPRESSION: No pulmonary emboli. COMMENT: Quality ID # [id number]: Final reports with documentation of one or more dose reduction techniques (e.g., Automated exposure control, adjustment of the mA and/or kV according to patient size, use of iterative reconstruction technique) TECHNICAL DOCUMENTATION: JOB ID: [id number] 2010 [employer]- All Rights Reserved
[2017-12-02] MEDS ORDERED: IPRATROPIUM/ALBUTEROL 0.5-2.5 MG/3 ML AMPUL NEB ONE (00:13)
[2017-12-02] MEDS ORDERED: FENTANYL CITRATE INJ/PF 100 MCG/2 ML AMPUL IV ONE (00:14)
[2017-12-02] MEDS ORDERED: OXYCODONE-ACETAMINOPHEN 5-325 MG TABLET PO ONE (00:57)
[2017-12-02 01:49] VITALS: BP 131/77
[2017-12-02] MEDS ORDERED: BUDESONIDE/FORMOTEROL 80-4.5 MCG 60 PUFF/6.9 GM MDI IH ONE ×2 (02:03→02:36)
[2017-12-02] MEDS ORDERED: ALBUTEROL SULFATE HFA (90 MCG/PUFF) 8 GM MDI (1 MDI/ER DISP) IH ONE (02:03)
== END 2017-12-02 03:20 | disposition home or self-care (01) ==
LOC: ER 13:14
DX: R07.89 Other chest pain (principal); J43.9 Emphysema, unspecified; J98.01 Acute bronchospasm; R06.02 Shortness of breath; R05 Cough; R42 Dizziness and giddiness; F17.200 Nicotine dependence, unspecified, uncomplicated; I25.10 Atherosclerotic heart disease of native coronary artery without angina pectoris; Z87.01 Personal history of pneumonia (recurrent); Z88.0 Allergy status to penicillin
CPT/HCPCS: 93005; 94640 ×2; 99285; 96374; 96375; 36415; 82553; 82550; 83690; 85025; 80053; 81001; 84484; 71046; 71275; 93010; J3010; J3490 ×2; J2930; J7620 ×2

== ENCOUNTER → 2018-03-16 | Outpatient (CLI) | payer OTHER ==
--- NOTE | 2018-03-16 18:08 | RADIOLOGY REPORT (SQ) ---
EXAM DESCRIPTION: CT CHEST WITHOUT COMPLETED DATE/TIME: 03/16/2018 5:21 pm REASON FOR STUDY: DYSPNEA, UNSPECIFIED R06.00 DYSPNEA, UNSPECIFIED COMPARISON: None. TECHNIQUE: CT scan performed of the chest without intravenous contrast. Images reviewed with lung, soft tissue and bone windows. Reconstructed coronal and sagittal MPR images reviewed. All images st ored on PACS. All CT scanners at this facility use dose modulation, iterative reconstruction, and/or weight based d osing when appropriate to reduce radiation dose to as low as reasonably achievable (ALARA). [facility]: Dose Right [facility]: CareDose [facility]: Dose Right [facility]: Teradose 4D [facility]: [employer] RADIATION DOSE: CT Rad equipment meets quality standard of care and radiation dose reduction techniq ues were employed. CTDIvol: 17.8 mGy. DLP: 775 mGy-cm. mGy. LIMITATIONS: No technical limitations. FINDINGS: LUNGS AND PLEURA: No masses, infiltrates, pneumothorax. No pleural effusions, calcificati ons. HILAR AND MEDIASTINAL STRUCTURES: No identified masses or abnormal nodes. No obvious aneurysm. HEART AND VASCULAR STRUCTURES: No aneurysm. No pericardial effusion. UPPER ABDOMEN: No significant findings. Limited exam. THYROID AND OTHER SOFT TISSUES: No masses. No adenopathy. BONES: No significant finding. HARDWARE: None in the chest. OTHER: No other significant findings. IMPRESSION: NO SIGNIFICANT FINDING ON NON-CONTRASTED CHEST CT. TECHNICAL DOCUMENTATION: JOB ID: [id number] Quality ID # [id number]: Final reports with documentation of one or more dose reduction techniques (e.g., Au tomated exposure control, adjustment of the mA and/or kV according to patient size, use of iterative reconstruction technique) 2010 [employer]- All Rights Reserved Reading location - IP/workstation name: [email or web address]
== END ==
LOC: RAD 16:52
PROVIDERS: ATTEND Physician Assistant
DX: R06.00 Dyspnea, unspecified (principal)
CPT/HCPCS: 71250

== ENCOUNTER 2018-06-28 16:13 | Emergency (ER) | payer SELFPAY ==
[2018-06-28] MEDS ORDERED: ASPIRIN 81 MG TABLET, CHEWABLE PO ONE (17:14)
--- NOTE | 2018-06-28 17:16 | ER Document Report ---
ED Medical Screen (RME) - General Chief Complaint: Dizziness Stated Complaint: BLURRED VISION Time Seen by Provider: 06/28/18 17:14 Mode of Arrival: Ambulatory Information source: Patient Notes: 47 years old male was discharged from the hospital recently presents back again with the substernal chest pain, exertional chest pain as well as shortness of breath on exertion. Since being discharged. 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 He was sent over here by the primary care physician today because of chest pain. Has a strong family history of coronary artery disease his brother had an MN at 39, his father had stents all his uncles have heart diseases. He also had an episode of vertigo last Wednesday with ringing sensation and spinning sensation. Examination unremarkable. Electrocardiogram shows sinus rhythm at the rate of 74 bpm no acute changes. TRAVEL OUTSIDE OF THE [place] IN LAST 30 DAYS: No - Related Data Allergies/Adverse Reactions: Penicillins Allergy (Verified 12/01/17 13:20) Past Medical History - Social History Chew tobacco use (# tins/day): No Frequency of alcohol use: Occasional Drug Abuse: None - Past Medical History Cardiac Medical History: Reports: Hx Coronary Artery Disease, Hx Hypercholesterolemia Pulmonary Medical History: Reports: Hx Bronchitis, Hx COPD, Hx Pneumonia Neurological Medical History: Denies: Hx Seizures Renal/ Medical History: Reports: Hx Kidney Stones. Denies: Hx Peritoneal Dialysis GI Medical History: Reports: Hx Gastroesophageal Reflux Disease, Hx Endoscopy Musculoskeltal Medical History: Reports Hx Musculoskeletal Deformity - pidgeon feet as , Reports Hx Musculoskeletal Trauma Traumatic Medical History: Reports: Hx Fractures - left 5th finger Past Surgical History: Reports: Hx Cardiac Catheterization - negative in 2011, Hx Orthopedic Surgery - corrective surgery for feet - Immunizations Immunizations up to date: Yes Hx Diphtheria, Pertussis, Tetanus Vaccination: Yes - 08/04/17 Physical Exam - Vital signs Vitals: Temp Pulse Resp BP Pulse Ox 98.2 F 80 14 132/88 H 97 06/28/18 16:26 06/28/18 16:26 06/28/18 16:26 06/28/18 16:26 06/28/18 16:26 Course - Vital Signs Vital signs: Temp Pulse Resp BP Pulse Ox 98.2 F 80 14 132/88 H 97 06/28/18 16:26 06/28/18 16:26 06/28/18 16:26 06/28/18 16:26 06/28/18 16:26 Doctor's Discharge - Discharge Referrals: ARNOLD TINOCO, TAMRAC [Primary Care Provider] - Follow up as needed
--- NOTE | 2018-06-28 17:37 | RADIOLOGY REPORT (SQ) ---
EXAM DESCRIPTION: CHEST SINGLE VIEW COMPLETED DATE/TIME: 06/28/2018 5:29 pm REASON FOR STUDY: Chest pain COMPARISON: 12/01/2017 EXAM PARAMETERS: NUMBER OF VIEWS: One view. TECHNIQUE: Single frontal radiographic view of the chest acquired. RADIATION DOSE: NA LIMITATIONS: None. FINDINGS: LUNGS AND PLEURA: No opacities, masses or pneumothorax. No pleural effusion. MEDIASTINUM AND HILAR STRUCTURES: No masses. Contour normal. HEART AND VASCULAR STRUCTURES: Heart normal in size. Normal vasculature. BONES: No acute findings. HARDWARE: None in the chest. OTHER: No other significant finding. IMPRESSION: NO ACUTE RADIOGRAPHIC FINDING IN THE CHEST. TECHNICAL DOCUMENTATION: JOB ID: [id number] [employer]- All Rights Reserved Reading location - IP/workstation name: [email or web address]
--- NOTE | 2018-06-28 17:55 | RADIOLOGY REPORT (SQ) ---
EXAM DESCRIPTION: CT HEAD WITHOUT COMPLETED DATE/TIME: 06/28/2018 5:44 pm REASON FOR STUDY: Dizziness, blurred vision COMPARISON: 12/21/2011. TECHNIQUE: Axial images acquired through the brain without intravenous contrast. Images reviewed wi th bone, brain and subdural windows. Additional sagittal and coronal reconstructions were generated. Images stored on PACS. All CT scanners at this facility use dose modulation, iterative reconstruction, and/or weight based d osing when appropriate to reduce radiation dose to as low as reasonably achievable (ALARA). [facility]: Dose Right [facility]: CareDose [facility]: Dose Right [facility]: Teradose 4D [facility]: Medialive RADIATION DOSE: CT Rad equipment meets quality standard of care and radiation dose reduction techniq ues were employed. CTDIvol: 53.2 mGy. DLP: 1017 mGy-cm. mGy. LIMITATIONS: None. FINDINGS: VENTRICLES: Normal size and contour. CEREBRUM: No masses. No hemorrhage. No midline shift. No evidence for acute infarction. Normal gra y/white matter differentiation. No areas of low density in the white matter. CEREBELLUM: No masses. No hemorrhage. No alteration of density. No evidence for acute infarction. EXTRAAXIAL SPACES: No fluid collections. No masses. ORBITS AND GLOBE: No intra- or extraconal masses. Normal contour of globe without masses. CALVARIUM: No fracture. PARANASAL SINUSES: No fluid or mucosal thickening. SOFT TISSUES: No mass or hematoma. OTHER: No other significant finding. IMPRESSION: NORMAL BRAIN CT WITHOUT CONTRAST. EVIDENCE OF ACUTE STROKE: NO. COMMENT: Quality ID # [id number]: Final reports with documentation of one or more dose reduction techniques (e.g., Automated exposure control, adjustment of the mA and/or kV according to patient size, use of iterative reconstruction technique) TECHNICAL DOCUMENTATION: JOB ID: [id number] [employer]- All Rights Reserved Reading location - IP/workstation name: [email or web address]
[2018-06-28 18:06] LABS: ABSOLUTE BASOPHILS # (AUTO) 0.1 10^3/uL (0.0-0.2); ABSOLUTE EOSINOPHILS # (AUTO) 0.1 10^3/uL (0.0-0.6); ABSOLUTE LYMPHOCYTES (AUTO) 1.6 10^3/uL (0.5-4.7); ABSOLUTE MONOCYTES (AUTO) 0.7 10^3/uL (0.1-1.4); ABSOLUTE NEUT (AUTO) 5.3 10^3/uL (1.7-8.2); BASOPHILS % (AUTO) 0.7 % (0-2); EOSINOPHILS % (AUTO) 1.4 % (0-6); HEMOGLOBIN 16.1 g/dL (13.5-17.0); LYMPHOCYTES % (AUTO) 20.5 % (13-45); MEAN CORPUSCULAR HEMOGLOBIN 29.7 pg (27.0-33.4); MEAN CORPUSCULAR HGB CONC 34.3 g/dL (32.0-36.0); MEAN CORPUSCULAR VOLUME 87 fl (80-97); MONOCYTES % (AUTO) 9.1 % (3-13); PLATELET COUNT 175 10^3/uL (150-450); RED BLOOD COUNT 5.44 10^6/uL (4.35-5.55); SEGMENTED NEUTROPHILS % (AUTO) 68.3 % (42-78); TOTAL CELLS COUNTED % (AUTO) 100 %; WHITE BLOOD COUNT 7.7 10^3/uL (4.0-10.5)
[2018-06-28 18:25] LABS: ALANINE AMINOTRANSFERASE 31 U/L (21-72); ALBUMIN 4.5 g/dL (3.5-5.0); ALKALINE PHOSPHATASE 67 U/L (38-126); ANION GAP 13 (5-19); ASPARTATE AMINO TRANSFERASE 25 U/L (17-59); BILIRUBIN,DIRECT 0.2 mg/dL (0.0-0.4); BILIRUBIN,TOTAL 0.7 mg/dL (0.2-1.3); BLOOD UREA NITROGEN 10 mg/dL (7-20); CALCIUM 9.5 mg/dL (8.4-10.2); CARBON DIOXIDE 25 mmol/L (22-30); CHLORIDE 107 mmol/L (98-107); CREATINE KINASE 383 U/L (55-170); GLUCOSE 89 mg/dL (75-110); POTASSIUM 4.2 mmol/L (3.6-5.0); SODIUM 144.5 mmol/L (137-145); TOTAL PROTEIN 7.4 g/dL (6.3-8.2)
[2018-06-28 18:35] LABS: CREATINE KINASE MB 2.06 ng/mL (<4.55)
[2018-06-28 18:37] LABS: TROPONIN I < 0.012 ng/mL
[2018-06-28] MEDS ORDERED: NORMAL SALINE 1000 ML 1,000 ML IV ONE (20:36)
[2018-06-28] MEDS ORDERED: MECLIZINE HCL 25 MG TABLET PO ONE (20:37)
--- NOTE | 2018-06-28 20:50 | ER Document Report ---
ED Dizziness/Weakness - General Chief Complaint: Dizziness Stated Complaint: BLURRED VISION Time Seen by Provider: 06/28/18 17:14 Mode of Arrival: Ambulatory Notes: Patient is a 47-year-old male who presents with chief complaint of chest pain, blurred vision and dizziness. Patient reports that most of his symptoms started several weeks ago. Patient reports the chest pain started Wednesday, describes as a pressure that is midsternal. Patient denies any nausea or vomiting. Patient denies any radiation of the pain. Patient reports past medical history of hypertension hyperlipidemia, reports he has been out of his hypertension medications for approximately 1 month. TRAVEL OUTSIDE OF THE [place] IN LAST 30 DAYS: No - Related Data Allergies/Adverse Reactions: Penicillins Allergy (Verified 12/01/17 13:20) Past Medical History - General Information source: Patient - Social History Smoking Status: Current Every Day Smoker Chew tobacco use (# tins/day): No Frequency of alcohol use: Occasional Drug Abuse: None Family History: Arthritis, CAD, COPD, DM, Hyperlipidemia, Hypertension Patient has suicidal ideation: No Patient has homicidal ideation: No - Past Medical History Cardiac Medical History: Reports: Hx Coronary Artery Disease, Hx Hypercholesterolemia Pulmonary Medical History: Reports: Hx Bronchitis, Hx COPD, Hx Pneumonia Neurological Medical History: Denies: Hx Seizures Renal/ Medical History: Reports: Hx Kidney Stones. 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 , Reports Hx Musculoskeletal Trauma Traumatic Medical History: Reports: Hx Fractures - left 5th finger Past Surgical History: Reports: Hx Cardiac Catheterization - negative in 2011, Hx Orthopedic Surgery - corrective surgery for feet - Immunizations Immunizations up to date: Yes Hx Diphtheria, Pertussis, Tetanus Vaccination: Yes - 08/04/17 Review of Systems - Review of Systems Constitutional: No symptoms reported EENT: See HPI Cardiovascular: See HPI Respiratory: No symptoms reported Gastrointestinal: No symptoms reported Genitourinary: No symptoms reported Male Genitourinary: No symptoms reported Musculoskeletal: No symptoms reported Skin: No symptoms reported Hematologic/Lymphatic: No symptoms reported Neurological/Psychological: No symptoms reported Physical Exam - Vital signs Vitals: Temp Pulse Resp BP Pulse Ox 98.2 F 80 14 132/88 H 97 06/28/18 16:26 06/28/18 16:26 06/28/18 16:26 06/28/18 16:26 06/28/18 16:26 - Notes Notes: PHYSICAL EXAMINATION: GENERAL: Well-appearing, well-nourished and in no acute distress. HEAD: Atraumatic, normocephalic. EYES: Pupils equal round and reactive to light, extraocular movements intact, sclera anicteric, conjunctiva are normal. ENT: Nares patent, oropharynx clear without exudates. Moist mucous membranes. NECK: Normal range of motion, supple without lymphadenopathy LUNGS: Breath sounds clear to auscultation bilaterally and equal. No wheezes rales or rhonchi. HEART: Regular rate and rhythm without murmurs ABDOMEN: Soft, nontender, nondistended abdomen. No guarding, no rebound. No masses appreciated. Musculoskeletal: Normal range of motion, no pitting or edema. No cyanosis. NEUROLOGICAL: Cranial nerves grossly intact. Normal speech, normal gait. Normal sensory, motor exams PSYCH: Normal mood, normal affect. SKIN: Warm, Dry, normal turgor, no rashes or lesions noted. Course - Re-evaluation Re-evalutation: 06/28/18 20:50 This patient was initially seen by provider in triage who initiated his workup. Head CT and chest x-ray are both unremarkable. Initial troponin is negative. Labs otherwise unremarkable other than elevated CK of 383. Patient will be given 1 L normal saline bolus, meclizine 25 mg p.o. Patient is due to have a delta troponin drawn at 2130, will also redraw the CK. Repeat CK is 266 after IV fluids. Delta troponin is negative. Patient's vital signs remained stable, patient is normotensive. Patient currently denies any chest pain. Presentation of chest pain in an otherwise well appearing patient. Low clinical suspicion for ACS given clinical history, exam, EKG without ST elevations or depressions, and negative initial troponin. HEART score less than or equal to 3. PE also seems unlikely given clinical history, absence of tachycardia or dyspnea. Patient is PERC criteria negative. CXR without evidence of pneumothorax or pneumonia. No widened mediastinum. Aortic dissection also seems unlikely given history, symmetric pulses, CXR, and vitals. HEART Score: 3 Chest pain in a patient without evidence of cardiac or other serious etiology on workup today. I discussed with patient that, based on their age, risk factors and emergency department testing today, the likelihood that their symptoms are related to a heart attack is very low (estimated risk of heart attack or over the next 30 days of less than 1%). The patient demonstrates decision making capacity and has verbalized an understanding of these risks to me. Based on this, the patient has chosen to follow-up as an outpatient. Usual chest pain return precautions reviewed. The patient states understanding and agreement with this plan. - Vital Signs Vital signs: Temp Pulse Resp BP Pulse Ox 98.2 F 80 16 150/83 H 99 06/28/18 16:26 06/28/18 16:26 06/28/18 21:48 06/28/18 21:48 06/28/18 21:48 - Laboratory Result Diagrams: 06/28/18 17:52 06/28/18 17:52 Laboratory results interpreted by me: 06/28/18 06/28/18 06/28/18 17:52 17:52 21:10 RDW 16.0 H Creatine Kinase 383 H 266 H Discharge - Discharge Clinical Impression: Chest pain Qualifiers: Chest pain type: unspecified Qualified Code(s): R07.9 - Chest pain, unspecified Hypertension Qualifiers: Hypertension type: unspecified Qualified Code(s): I10 - Essential (primary) hypertension Condition: Stable Disposition: HOME, SELF-CARE Additional Instructions: Chest Pain of Unclear Cause The exact cause of your chest pain isn't clear. Fortunately, there is no evidence of a dangerous medical condition. Further testing may be required to find the source of the pain. Most often, we find that this pain is coming from the chest wall -- the muscles or rib joints in the chest. But chest pain can come from the lung and lung lining, the esophagus, the heart valves or heart lining, and even the stomach or gallbladder. Rest. Eat lightly until the pain is gone. We may prescribe medicine for pain and inflammation. You should call the physician immediately if the pain radiates to the shoulder, jaw or arms; if you start to run a fever or develop a cough; or if you develop shortness of breath, or other new or alarming symptoms. Dizziness Under normal circumstances, your sense of balance is controlled by a number of signals that your brain receives from several locations: Eyes. No matter what your position, visual signals help you determine where your body is in space and how it's moving. Sensory nerves. These are in your skin, muscles and joints. Sensory nerves send messages to your brain about body movements and positions. Inner ear. The organ of balance in your inner ear is the vestibular labyrinth. It includes loop-shaped structures (semicircular canals) that contain fluid and fine, hair-like sensors that monitor the rotation of your head. Near the semicircular canals are the utricle and saccule, which contain tiny particles called otoconia ([id number]). These particles are attached to sensors that help detect gravity and byzs-fjl-dnchb motion. Good balance depends on at least two of these three sensory systems working well. For instance, closing your eyes while washing your hair in the shower doesn't mean you'll lose your balance. Signals from your inner ear and sensory nerves help keep you upright. However, if your central nervous system can't process signals from all of these locations, if the messages are contradictory, or if the sensory systems aren't functioning properly, you may experience loss of balance. Dizziness may have a number of potential causes. These may include: Vertigo Vertigo - the false sense of motion or spinning - is the most common symptom of dizziness. Sitting up or moving around may make it worse. Sometimes vertigo is severe enough to cause nausea and vomiting. Vertigo usually results from a problem with the nerves and the structures of the balance mechanism in your inner ear (vestibular system), which sense movement and changes in your head position. Abnormal rhythmic eye movements ( nystagmus) almost always accompany vertigo. Causes of vertigo may include: Benign paroxysmal positional vertigo (BPPV). BPPV involves intense, brief episodes of vertigo associated with a change in the position of your head, often when you turn over in bed or sit up in the morning. It occurs when normal calcium carbonate crystals (otoconia) break loose and fall into the wrong part of the canals in your inner ear. When these particles shift, they stimulate sensors in your ear, producing an episode of vertigo. Doctors don't know what causes BPPV, but it may be a natural result of aging. Trauma to your head also may lead to BPPV. Inflammation in the inner ear. Signs and symptoms of inflammation of the inner ear (acute vestibular neuronitis or labyrinthitis) include sudden, intense vertigo that may persist for several days, with nausea and vomiting. It can be incapacitating, requiring bed rest to minimize the signs and symptoms. Fortunately, vestibular neuronitis generally subsides and clears up on its own. Recovery time may be shorter with vestibular rehabilitation exercises. Although the cause of this condition is unknown, it may be a viral infection. Meniere's disease. This disease involves the excessive buildup of fluid in your inner ear. It may affect adults at any age and is characterized by sudden episodes of vertigo lasting 30 minutes to an hour or longer. Other signs and symptoms include the feeling of fullness in your ear, buzzing or ringing in your ear (tinnitus), and fluctuating hearing loss. The cause of Meniere's disease is unknown. Vestibular migraine. People who experience a vestibular migraine are very sensitive to motion. Dizziness and vertigo caused by a vestibular migraine may be triggered by turning your head quickly, being in a crowded or confusing place , driving or riding in a vehicle, or even watching movement on TV. A vestibular migraine may cause feelings of imbalance or unsteadiness, hearing loss, "muffled " hearing, or ringing in your ears (tinnitus). For most people with a vestibular migraine, vertigo doesn't necessarily happen at the same time as the headache. Instead, typical migraine triggers may lead to vertigo without an actual migraine. Attacks of migrainous vertigo can last from a few minutes to several days. Acoustic neuroma. An acoustic neuroma (schwannoma) is a noncancerous (benign ) growth on the acoustic nerve, which connects the inner ear to your brain. Signs and symptoms of an acoustic neuroma may include dizziness, loss of balance , hearing loss and tinnitus. Rapid changes in motion. Riding on roller coasters or in boats, cars or even airplanes may on occasion make you dizzy. Other causes. Rarely, vertigo can be a symptom of a more serious neurological problem such as a stroke, brain hemorrhage or multiple sclerosis. High Blood Pressure When your blood pressure was taken today it was elevated. Pre-hypertension/Hypertension: The patient has been informed that they may have pre-hypertension or Hypertension based on a blood pressure reading in the emergency department. I recommend that the patient call the primary care provider listed on their discharge instructions or a physician of their choice this wee to arrange follow up for further evaluation of possible pre- hypertension or Hypertension. Sometimes, stress or illness causes a temporary elevation of your blood pressure. We suggest that you get your blood pressure measured three more times during the next few days to see if this is more than a temporary abnormality. If your blood pressure is greater than 150/90 on each occasion, you must have treatment. Some simple things you can do to help are: If you have blood pressure medicine but aren't using it regularly, start taking it again. Get some aerobic exercise for at least 20 minutes on a daily basis. (See your doctor before beginning a new exercise program.) Eat a low-fat diet. Lose excess weight. Avoid salty foods and avoid adding salt to any of the foods you eat. Avoid diet pills, decongestants, "energizing" herbs, and other medicines that elevate blood pressure. If left untreated, hypertension greatly enhances your risk for developing heart disease and strokes. Please don't ignore this problem. Please follow-up with your primary care provider in the next 3-5 days for follow-up. Call Dr. Stokes's office to find out what blood pressure medication you take see if they can get you a refill. Return to the emergency department if you develop worsening chest pain, shortness of breath or any other symptoms that is concerning to. Please be sure to increase your hydration when you are out in the sun working. Referrals: ARNOLD TINOCO PA-C [Primary Care Provider] - Follow up as needed DANIEL STOKES MD [ACTIVE STAFF] - Follow up as needed
[2018-06-28] MEDS ORDERED: KETOROLAC TROMETHAMINE INJ/PF 30 MG/1 ML SDV IV ONE (22:07)
[2018-06-28 22:08] VITALS: BP 150/83
[2018-06-28] MEDS ORDERED: RINGERS SOLUTION,LACTATED 1,000 ML IV ONE (22:09)
--- NOTE | 2018-06-28 22:31 | EKG REPORT ---
SEVERITY:- BORDERLINE ECG - SINUS RHYTHM BORDERLINE T ABNORMALITIES, INFERIOR LEADS : Confirmed by: Debby Winter MD 28-Jun-2018 22:30:50
--- NOTE | 2018-06-28 22:31 | EKG REPORT ---
SEVERITY:- NORMAL ECG - SINUS RHYTHM : Confirmed by: Debby Winter MD 28-Jun-2018 22:30:55
[2018-06-28 22:37] LABS: APPEARANCE,URINE CLEAR; BILIRUBIN,URINE NEGATIVE (NEGATIVE); COLOR,URINE YELLOW; GLUCOSE, URINE NEGATIVE (NEGATIVE); KETONES,URINE NEGATIVE (NEGATIVE); LEUKOCYTE ESTERASE,URINE NEGATIVE (NEGATIVE); NITRITE,URINE NEGATIVE (NEGATIVE); PROTEIN,URINE NEGATIVE (NEGATIVE); URINE SPECIFIC GRAVITY 1.018; UROBILINOGEN,URINE NEGATIVE mg/dL (<2.0)
== END 2018-06-28 23:36 | disposition home or self-care (01) ==
LOC: ER 16:13
DX: R07.9 Chest pain, unspecified (principal); I10 Essential (primary) hypertension; R42 Dizziness and giddiness; H53.8 Other visual disturbances; E78.5 Hyperlipidemia, unspecified; I25.10 Atherosclerotic heart disease of native coronary artery without angina pectoris; J44.9 Chronic obstructive pulmonary disease, unspecified; F17.200 Nicotine dependence, unspecified, uncomplicated; Z79.899 Other long term (current) drug therapy
CPT/HCPCS: 93005; 99285; 96361; 96375; 96365; 36415; 82553; 82550; 85025; 80053; 81001; 84484; 71045; 70450; 93010; J1885; J7030; J7120

== ENCOUNTER → 2018-12-23 | Outpatient (CLI) | payer OTHER ==
--- NOTE | 2018-12-23 13:00 | RADIOLOGY REPORT (SQ) ---
EXAM DESCRIPTION: CT CHEST WITHOUT COMPLETED DATE/TIME: 12/23/2018 12:40 pm REASON FOR STUDY: HEMOPTYSIS (R04.2) R04.2 HEMOPTYSIS COMPARISON: 03/16/2018 TECHNIQUE: CT scan performed of the chest without intravenous contrast. Images reviewed with lung, soft tissue and bone windows. Reconstructed coronal and sagittal MPR images reviewed. All images st ored on PACS. All CT scanners at this facility use dose modulation, iterative reconstruction, and/or weight based d osing when appropriate to reduce radiation dose to as low as reasonably achievable (ALARA). [facility]: Dose Right [facility]: CareDose [facility]: Dose Right [facility]: Teradose 4D [facility]: Spoonity RADIATION DOSE: CT Rad equipment meets quality standard of care and radiation dose reduction techniq ues were employed. CTDIvol: 15.6 mGy. DLP: 663 mGy-cm. mGy. LIMITATIONS: No technical limitations. FINDINGS: LUNGS AND PLEURA: No masses, infiltrates, or pneumothorax. No pleural effusions or pleura l calcifications. HILAR AND MEDIASTINAL STRUCTURES: There are small stable mediastinal nodes. These are nonspecific bu t most likely reactive. HEART AND VASCULAR STRUCTURES: No aneurysm. No pericardial effusion. UPPER ABDOMEN: No significant findings. Limited exam. There are accessory splenules noted. THYROID AND OTHER SOFT TISSUES: No masses. No adenopathy. BONES: No significant finding. HARDWARE: None in the chest. OTHER: No other significant findings. IMPRESSION: NO SIGNIFICANT FINDING ON NON-CONTRASTED CHEST CT. TECHNICAL DOCUMENTATION: JOB ID: [id number] Quality ID # [id number]: Final reports with documentation of one or more dose reduction techniques (e.g., Au tomated exposure control, adjustment of the mA and/or kV according to patient size, use of iterative reconstruction technique) 2010 [employer]- All Rights Reserved Reading location - IP/workstation name: [email or web address]
== END ==
LOC: RAD 12:29
PROVIDERS: ATTEND Internal Medicine Pulmonary Disease
DX: R04.2 Hemoptysis (principal)
CPT/HCPCS: 71250

== ENCOUNTER → 2019-01-26 | Outpatient (CLI) | payer OTHER ==
[2019-01-26 12:41] LABS: ABSOLUTE BASOPHILS # (AUTO) 0.1 10^3/uL (0.0-0.2); ABSOLUTE EOSINOPHILS # (AUTO) 0.3 10^3/uL (0.0-0.6); ABSOLUTE LYMPHOCYTES (AUTO) 1.6 10^3/uL (0.5-4.7); ABSOLUTE MONOCYTES (AUTO) 0.7 10^3/uL (0.1-1.4); BASOPHILS % (AUTO) 0.7 % (0-2); EOSINOPHILS % (AUTO) 3.3 % (0-6); HEMATOCRIT 43.9 % (37.9-51.0); HEMOGLOBIN 15.4 g/dL (13.5-17.0); LYMPHOCYTES % (AUTO) 18.8 % (13-45); MEAN CORPUSCULAR HEMOGLOBIN 30.6 pg (27.0-33.4); MEAN CORPUSCULAR VOLUME 88 fl (80-97); MONOCYTES % (AUTO) 8.2 % (3-13); PLATELET COUNT 148 10^3/uL (150-450); RED BLOOD COUNT 5.02 10^6/uL (4.35-5.55); RED CELL DISTRIBUTION WIDTH 14.5 % (11.5-14.0); TOTAL CELLS COUNTED % (AUTO) 100 %; WHITE BLOOD COUNT 8.8 10^3/uL (4.0-10.5)
[2019-01-26 12:59] LABS: ALANINE AMINOTRANSFERASE 55 U/L (21-72); ALBUMIN 4.6 g/dL (3.5-5.0); ALKALINE PHOSPHATASE 70 U/L (38-126); ANION GAP 9 (5-19); ASPARTATE AMINO TRANSFERASE 32 U/L (17-59); BILIRUBIN,DIRECT 0.1 mg/dL (0.0-0.4); BILIRUBIN,TOTAL 0.6 mg/dL (0.2-1.3); BLOOD UREA NITROGEN 13 mg/dL (7-20); CALCIUM 9.8 mg/dL (8.4-10.2); CARBON DIOXIDE 26 mmol/L (22-30); CHLORIDE 108 mmol/L (98-107); GLUCOSE 92 mg/dL (75-110); POTASSIUM 4.6 mmol/L (3.6-5.0); SODIUM 142.9 mmol/L (137-145); TOTAL PROTEIN 7.1 g/dL (6.3-8.2)
[2019-01-28 10:43] LABS: CHOLESTEROL 162.97 mg/dL (0-200); TRIGLYCERIDES 95 mg/dL (<150)
[2019-01-28 10:55] LABS: DIRECT LDL 101 mg/dL (<100)
== END ==
LOC: LAB 12:10
PROVIDERS: ATTEND Internal Medicine Cardiovascular Disease
DX: I10 Essential (primary) hypertension (principal); E78.5 Hyperlipidemia, unspecified
CPT/HCPCS: 36415; 80053; 80061; 83036; 85025

== ENCOUNTER 2019-04-27 10:49 | Emergency (ER) | payer OTHER ==
[2019-04-27] MEDS ORDERED: LIDOCAINE 5% (700 MG) TRANSDERMAL ADH..PATCH TP ONE (11:10)
[2019-04-27] MEDS ORDERED: KETOROLAC TROMETHAMINE 60 MG/2 ML SDV IM ONE (11:10)
--- NOTE | 2019-04-27 11:13 | ER Document Report ---
HPI - HPI Time Seen by Provider: 04/27/19 11:00 Pain Level: 5 Notes: Patient is a 48-year-old male with h/o HTN, asthma, hypercholesterolemia who presents to the ED complaining of Rt lower back pain s/p twist injury at work prior to arrival. Pt states that he tripped over a jose-stand and twisted his back during the fall. Patient states that he did not injure any other part of his body or have any loss of consciousness. Patient states that bending twisting of the trunk make his pain worse. Pain does not radiate. He is eating and drinking without any difficulties. He is urinating normally. He has not had any injections or procedures to his lower back. Denies any IV drug abuse. No other concerns or complaints. Denies any headache, fever, head injury, neck pain, changes in vision/speech/mentation/hearing, URI, sore throat, chest pain, palpitations, syncope, cough, shortness of breath, wheeze, dyspnea, abdominal pain, nausea/vomiting/diarrhea, urinary retention, dysuria, hematuria, loss of control of bowel or bladder, numbness/tingling, saddle anesthesia, muscle paralysis/weakness, or rash. - ROS Systems Reviewed and Negative: Yes All other systems reviewed and negative - CONSTITUTIONAL Constitutional: DENIES: Fever, Chills Past Medical History - Social History Smoking Status: Current Every Day Smoker Family History: Arthritis, CAD, COPD, DM, Hyperlipidemia, Hypertension Patient has suicidal ideation: No Patient has homicidal ideation: No - Past Medical History Cardiac Medical History: Reports: Hx Coronary Artery Disease, Hx Hypercholesterolemia, Hx Hypertension Pulmonary Medical History: Reports: Hx Bronchitis, Hx COPD, Hx Pneumonia Neurological Medical History: Denies: Hx Seizures Renal/ Medical History: Reports: Hx Kidney Stones. 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 LUNGS: Breath sounds clear to auscultation bilaterally and equal. No wheezes rales or rhonchi. HEART: Regular rate and rhythm without murmurs, rubs, gallops. ABDOMEN: Soft, nontender, nondistended abdomen. No guarding, no rebound. Normal bowel sounds present. No CVA tenderness bilaterally. No pulsatile mass Musculoskeletal: LE's b/l: FROM to passive/active. Strength 5+/5. No deficits noted. No bony tenderness of extremities. Back: FROM to passive/active. Strength 5+/5. No vertebral point tenderness, stepoffs, or deformities. No other bony tenderness, erythema, swelling, or ecchymosis. SLR negative b/l. Unable to reproduce symptoms by palp. Reproduced by ROM rt low back. Mild spasming. No SI jt tenderness. No foot drop. Pelvis stable. Extremities: No cyanosis, clubbing, or edema b/l. Peripheral pulses 2+. Capillary refill less than 2 seconds. NEUROLOGICAL: Normal speech, normal gait. Normal sensory, motor exams. Reflexes 2+ b/l. PSYCH: Normal mood, normal affect. SKIN: Warm, Dry, normal turgor, no rashes or lesions noted. - INFECTION CONTROL TRAVEL OUTSIDE OF THE [place] IN LAST 30 DAYS: No Course - Re-evaluation Re-evalutation: 04/27/19 Patient is an afebrile, well-hydrated, 48-year-old male who presents to the ED with acute low back pain, suspect strain/sprain. Vitals are acceptable. PE is otherwise unremarkable for any focal neurological deficits. X-ray shows spondylosis without any other acute pathology. Patient was given Toradol and Lidoderm patch. He has no significant tachycardia, tachypnea, or hypoxia. He is nontoxic-appearing and is tolerating p.o. without difficulties. There are no signs of infection. No other red flag symptoms noted. No other labs or imaging warranted at this time based on H&P. Low suspicion for any meningitis, fracture, expanding/ruptured AAA, cauda equina syndrome, epidural mass lesion/abscess, herniated disc causing severe spinal stenosis, or other systemic infection at this time. Patient is aware that his condition can change from initial presentation and that he needs monitor symptoms closely for any acute changes. I will send him home with a prescription for robaxin and naproxen. Conservative measures otherwise for symptoms. Recheck with your PCM in 3-5 days. Consider consult with orthopedic/physical therapy. Return to the ED with any worsening/concerning symptoms otherwise as reviewed discharge. Patient is in agreement. - Vital Signs Vital signs: Temp Pulse Resp BP Pulse Ox 98.4 F 74 20 125/79 94 04/27/19 10:53 04/27/19 10:53 04/27/19 10:53 04/27/19 10:53 04/27/19 10:53 Discharge - Discharge Clinical Impression: Low back pain Qualifiers: Chronicity: acute Back pain laterality: right Sciatica presence: without sciatica Qualified Code(s): M54.5 - Low back pain Condition: Stable Disposition: HOME, SELF-CARE Additional Instructions: Rest, Ice Tylenol/ibuprofen as needed Light stretches daily Strength exercises as able Moist heat and massage may help F/u with your PCP in 3-5 days for a recheck Consider consult(s) with Orthopedics/physical therapy for ongoing/worsening symptoms Return to the ED with any worsening symptoms and/or development of fever, headache, chest pain, palpitations, syncope, shortness of breath, trouble breathing, abdominal pain, n/v/d, blood in stool/urine, loss of control of bowel/bladder, urinary retention, muscle weakness/paralysis, saddle anesthesia, numbness/tingling, or other worsening symptoms that are concerning to you. Prescriptions: Methocarbamol [Robaxin] 500 mg PO TID PRN #12 tablet PRN Reason: Naproxen 500 mg PO BID #14 tablet Forms: Smoking Cessation Education, Return to Work Referrals: DANIEL STOKES MD [Primary Care Provider] - Follow up as needed [facility] [Provider Group] - Follow up as needed
--- NOTE | 2019-04-27 11:58 | RADIOLOGY REPORT (SQ) ---
EXAM DESCRIPTION: L SPINE WHOLE COMPLETED DATE/TIME: 04/27/2019 11:45 am REASON FOR STUDY: Low back pain s/p injury/fall COMPARISON: None. NUMBER OF VIEWS: Five views including obliques. TECHNIQUE: AP, lateral, oblique, and sacral radiographic images acquired of the lumbar spine. LIMITATIONS: None. FINDINGS: MINERALIZATION: Normal. SEGMENTATION: Normal. No transitional anatomy. ALIGNMENT: Normal. VERTEBRAE: Maintained height. No fracture or worrisome bone lesion. DISCS: Multilevel disc space narrowing with osteophytes. POSTERIOR ELEMENTS: Pedicles and facets are intact. No pars defect or posterior arch defects. Facet arthropathy is present. HARDWARE: None in the spine. PARASPINAL SOFT TISSUES: Normal. PELVIS: Intact as visualized. No fractures or worrisome bone lesions. SI joints intact. OTHER: No other significant finding. IMPRESSION: SPONDYLOSIS WITHOUT BONE LESION OR FRACTURE. TECHNICAL DOCUMENTATION: JOB ID: [id number] [employer]- All Rights Reserved Reading location - IP/workstation name: [email or web address]
[2019-04-27 12:11] VITALS: BP 119/71
== END 2019-04-27 12:18 | disposition home or self-care (01) ==
LOC: ER 10:49
DX: M54.5 Low back pain (principal); F17.200 Nicotine dependence, unspecified, uncomplicated; W18.09XA Striking against other object with subsequent fall, initial encounter; Y99.0 Civilian activity done for income or pay; I10 Essential (primary) hypertension; Z87.442 Personal history of urinary calculi
CPT/HCPCS: 99284; 96372; 72110; J1885

== ENCOUNTER 2020-01-28 23:11 | Emergency (ER) | payer OTHER ==
--- NOTE | 2020-01-28 23:27 | ER Document Report ---
ED Medical Screen (RME) - General Chief Complaint: Psych Problem Stated Complaint: PSYCH EVAL/SUICIDAL Time Seen by Provider: 01/28/20 23:20 Primary Care Provider: DANIEL STOKES MD [Primary Care Provider] - Follow up as needed TRAVEL OUTSIDE OF THE [place] IN LAST 30 DAYS: No - HPI Notes: 01/28/20 23:26 Patient is a 49-year-old male with a history of depression and COPD who presents with mobile crisis for suicidal ideation/threats. Patient states that his brother called from out of state and he ended up here. Patient states that he verbalizes "all the time" that he is going to kill himself, but states that he never would and does not have any plan. No visual or auditory hallucinations. No fever, recent illness, chest pain, shortness of breath, abdominal pain. I have treated and performed a rapid initial assessment of this patient. A comprehensive ED assessment and evaluation of the patient, analysis of test results and completion of medical decision making process will be conducted by additional ED providers. PHYSICAL EXAMINATION: GENERAL: Well-appearing, well-nourished and in no acute distress. A&Ox4. Answers questions appropriately. Psych: Patient seems irritated that he is here. Animated in discussion. - Related Data Allergies/Adverse Reactions: Penicillins Allergy (Verified 01/28/20 23:26) Past Medical History - Past Medical History Cardiac Medical History: Reports: Hx Coronary Artery Disease, Hx Hypercholesterolemia, Hx Hypertension Pulmonary Medical History: Reports: Hx Bronchitis, Hx COPD, Hx Pneumonia Neurological Medical History: Denies: Hx Seizures Renal/ Medical History: Reports: Hx Kidney Stones. 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
[2020-01-29 00:01] LABS: ABSOLUTE BASOPHILS # (AUTO) 0.1 10^3/uL (0.0-0.2); ABSOLUTE EOSINOPHILS # (AUTO) 0.4 10^3/uL (0.0-0.6); ABSOLUTE LYMPHOCYTES (AUTO) 3.2 10^3/uL (0.5-4.7); ABSOLUTE MONOCYTES (AUTO) 0.8 10^3/uL (0.1-1.4); BASOPHILS % (AUTO) 0.4 % (0-2); EOSINOPHILS % (AUTO) 2.9 % (0-6); HEMATOCRIT 46.5 % (37.9-51.0); HEMOGLOBIN 16.1 g/dL (13.5-17.0); LYMPHOCYTES % (AUTO) 24.1 % (13-45); MEAN CORPUSCULAR HEMOGLOBIN 30.7 pg (27.0-33.4); MEAN CORPUSCULAR HGB CONC 34.6 g/dL (32.0-36.0); MEAN CORPUSCULAR VOLUME 89 fl (80-97); MONOCYTES % (AUTO) 5.7 % (3-13); PLATELET COUNT 190 10^3/uL (150-450); RED BLOOD COUNT 5.24 10^6/uL (4.35-5.55); RED CELL DISTRIBUTION WIDTH 15.3 % (11.5-14.0); SEGMENTED NEUTROPHILS % (AUTO) 66.9 % (42-78); TOTAL CELLS COUNTED % (AUTO) 100 %; WHITE BLOOD COUNT 13.4 10^3/uL (4.0-10.5)
[2020-01-29 00:13] LABS: APPEARANCE,URINE CLEAR; BILIRUBIN,URINE NEGATIVE (NEGATIVE); COLOR,URINE COLORLESS; GLUCOSE, URINE NEGATIVE (NEGATIVE); KETONES,URINE NEGATIVE (NEGATIVE); LEUKOCYTE ESTERASE,URINE NEGATIVE (NEGATIVE); NITRITE,URINE NEGATIVE (NEGATIVE); PROTEIN,URINE NEGATIVE (NEGATIVE); URINE SPECIFIC GRAVITY 1.002; UROBILINOGEN,URINE NEGATIVE mg/dL (<2.0)
[2020-01-29 00:18] LABS: ALBUMIN 4.4 g/dL (3.5-5.0); ALCOHOL 194 mg/dL (NONE DETECTED); ALKALINE PHOSPHATASE 85 U/L (38-126); ANION GAP 11 (5-19); ASPARTATE AMINO TRANSFERASE 28 U/L (17-59); BILIRUBIN,TOTAL 0.3 mg/dL (0.2-1.3); BLOOD UREA NITROGEN 8 mg/dL (7-20); CALCIUM 8.7 mg/dL (8.4-10.2); CARBON DIOXIDE 24 mmol/L (22-30); CHLORIDE 102 mmol/L (98-107); GLUCOSE 84 mg/dL (75-110); POTASSIUM 4.4 mmol/L (3.6-5.0); SALICYLATE 1.2 mg/dL (2.0-20.0); TOTAL PROTEIN 7.2 g/dL (6.3-8.2)
[2020-01-29 00:20] LABS: ACETAMINOPHEN < 10 ug/mL (10-30)
[2020-01-29 00:27] LABS: URINE AMPHETAMINES SCREEN NEGATIVE; URINE BARBITURATES SCREEN NEGATIVE; URINE BENZODIAZEPINES SCREEN NEGATIVE; URINE COCAINE SCREEN NEGATIVE; URINE MARIJUANA (THC) SCREEN NEGATIVE; URINE METHADONE SCREEN NEGATIVE; URINE PHENCYCLIDINE SCREEN NEGATIVE
--- NOTE | 2020-01-29 00:36 | ER Document Report ---
ED Psych Disorder / Suicide - General Chief Complaint: Psych Problem Stated Complaint: PSYCH EVAL/SUICIDAL Time Seen by Provider: 01/28/20 23:20 Primary Care Provider: DANIEL STOKES MD [Primary Care Provider] - Follow up as needed Notes: Patient is a 49-year-old male who comes to the emergency department for chief complaint of suicidal statements. He does state that he is depressed, he states that he lost his fiance, his mother, and his brother over the past couple of years, he states he lives at home alone and no one comes to see him, he states that he talked to his brother who he rarely sees and he told him that he was thinking about killing himself. He states he has said this several times in the past but he "does not need it". He states that he does not have a plan, has never attempted in the past. He states he did tell his varitype operator Dr. Guerra that he is depressed and he was prescribed an antidepressant and he just took the last dose of it this morning. He does not have a refill. He also has a history of COPD, hypertension, hyperlipidemia. He denies recreational drugs. He does admit to alcohol today and occasionally but denies alcohol abuse or alcohol dependence. Patient states that after he spoke to his brother his brother called [facility] and he was picked up by law enforcement to be brought here. TRAVEL OUTSIDE OF THE [place] IN LAST 30 DAYS: No - Related Data Allergies/Adverse Reactions: Penicillins Allergy (Verified 01/28/20 23:26) Home Medications: patient unable to recall Past Medical History - General Information source: Patient - Social History Smoking Status: Current Every Day Smoker Frequency of alcohol use: Heavy Drug Abuse: None Lives with: Alone Family History: Arthritis, CAD, COPD, DM, Hyperlipidemia, Hypertension Patient has suicidal ideation: No Patient has homicidal ideation: No - Past Medical History Cardiac Medical History: Reports: Hx Coronary Artery Disease, Hx Hypercholesterolemia, Hx Hypertension Pulmonary Medical History: Reports: Hx Bronchitis, Hx COPD, Hx Pneumonia Neurological Medical History: Denies: Hx Seizures Renal/ Medical History: Reports: Hx Kidney Stones. 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 , Reports Hx Musculoskeletal Trauma Traumatic Medical History: Reports: Hx Fractures - left 5th finger Past Surgical History: Reports: Hx Cardiac Catheterization - negative in 2012, Hx Orthopedic Surgery - corrective surgery for feet - Immunizations Immunizations up to date: Yes Hx Diphtheria, Pertussis, Tetanus Vaccination: Yes - 08/04/17 Review of Systems - Review of Systems Constitutional: No symptoms reported EENT: No symptoms reported Cardiovascular: No symptoms reported Respiratory: No symptoms reported Gastrointestinal: No symptoms reported Genitourinary: No symptoms reported Male Genitourinary: No symptoms reported Musculoskeletal: No symptoms reported Skin: No symptoms reported Hematologic/Lymphatic: No symptoms reported Neurological/Psychological: See HPI Physical Exam - Vital signs Vitals: Temp Pulse Resp BP Pulse Ox 98.2 F 90 20 107/64 96 01/28/20 23:15 01/28/20 23:15 01/28/20 23:15 01/28/20 23:15 01/28/20 23:15 - Notes Notes: GENERAL: Alert but occasionally slurs his words, appears to be mildly intoxicated, does not appear to be in distress HEAD: Normocephalic, atraumatic. EYES: Pupils equal, round, and reactive to light. Extraocular movements intact. ENT: Oral mucosa moist, tongue midline. Oropharynx unremarkable. Airway patent. LUNGS: Clear to auscultation bilaterally, no wheezes, rales, or rhonchi. No respiratory distress. HEART: Regular rate and rhythm. No murmur ABDOMEN: Soft, non-tender. Non-distended. EXTREMITIES: Moves all 4 extremities spontaneously. No edema, normal radial and dorsalis pedis pulses bilaterally. No cyanosis. BACK: no cervical, thoracic, lumbar midline tenderness. No saddle anesthesia, normal distal neurovascular exam. Moves all extremities in full range of motion. NEUROLOGICAL: Alert and oriented x3. Slight slurring of speech. Cranial nerves II through XII grossly intact. PSYCH: Intermittently tearful and irritable in varying fashion SKIN: Warm, dry, normal turgor. No rashes or lesions noted. Course - Re-evaluation Re-evalutation: Work-up is unremarkable except for alcohol intoxication with alcohol of 194. Vital signs unremarkable. Patient denies any symptoms, has an unremarkable physical exam. Patient is varyingly irritable and tearful, does not he is depressed and lonely, misses his family members, feels like he has no one there for him, however he also states that he is not suicidal and he wants to leave. Initially patient was insistent, demanding to leave, however after I discussed with him at length, and I discussed with Dr. Patton, patient calmed down. Patient initially was stating that if he could get a ride home he would like to go home, however he was unable to contact his nephew to pick him up. Because of patient's depression, obvious sadness, suicidal statements, and alcohol intoxication with no one at home for him I recommended that patient remain here, sober up, and discussed with the mental health team. Patient changes mind, became very agreeable, states he would like to sober up and speak to her mental health team in the morning. Because patient is not actively suicidal, is not homicidal, and is cooperative patient was not placed on IVC paperwork at this time. Patient is medically cleared pending mental health team evaluation. - Vital Signs Vital signs: Temp Pulse Resp BP Pulse Ox 97.8 F 86 16 121/67 95 01/29/20 00:39 01/29/20 00:39 01/29/20 00:39 01/29/20 00:39 01/29/20 00:39 - Laboratory Result Diagrams: 01/28/20 23:25 01/28/20 23:25 Laboratory results interpreted by me: 01/28/20 01/28/20 23:25 23:25 WBC 13.4 H RDW 15.3 H Absolute Neuts (auto) 9.0 H Sodium 136.8 L Salicylates 1.2 L Acetaminophen < 10 L Discharge - Discharge Clinical Impression: Suicidal ideation Depression Qualifiers: Depression Type: unspecified Qualified Code(s): F32.9 - Major depressive disorder, single episode, unspecified Alcohol intoxication Qualifiers: Complication of substance-induced condition: uncomplicated Qualified Code(s): F10.920 - Alcohol use, unspecified with intoxication, uncomplicated Condition: Stable Disposition: PSYCH HOSP/UNIT Referrals: DANIEL STOKES MD [Primary Care Provider] - Follow up as needed
[2020-01-29] MEDS ORDERED: PROMETHAZINE HCL 25 MG TABLET PO ONE (03:13)
[2020-01-29] MEDS ORDERED: HYDROXYZINE PAMOATE 50 MG CAPSULE PO ONE (03:13)
[2020-01-29] MEDS ORDERED: IPRATROPIUM/ALBUTEROL 0.5-2.5 MG/3 ML AMPUL NEB ONE ×2 (03:18→03:22)
--- NOTE | 2020-01-29 06:22 | EKG REPORT ---
SEVERITY:- NORMAL ECG - SINUS RHYTHM : Confirmed by: Alexandre Gaviria MD 29-Jan-2020 06:21:47
--- NOTE | 2020-01-29 19:09 | PSYCHOLOGICAL NOTE ---
Psych Note - Psych Note Date seen by psych provider: 01/29/20 Time seen by psych provider: 08:00 Psych Note: Patient is a 49-year-old male who presents to ED via mobile crisis with concerns for suicidal ideation. Patient's brother who lives in [place] contacted [facility] to conduct a welfare visit after receiving text messages from patient endorsing suicidal ideation. Patient states "I say I'm going to kill myself all the time to everyone." Patient states no one in his family has ever taken him seriously. Patient denies current SI/HI. Patient states "I love myself and would never do anything to hurt myself." Patient reports limited social support. Patient is irritable and generally unengaged with clinician. Patient's OLMAN is 89 Clinician obtained collateral information from patient's brother who called [facility], Lee [phone] and [phone]. Lee reports patient has an extensive history with ETOH and drugs. Patient frequently endorses SI when intoxicated. Patient is grieving the loss of his mother, brother, and girlfriend from their in 2019. Patient send a text message to his sister in law, Ann, containing a picture of his shotgun in the kitchen and endorsement of SI. Lee states this is different that patient's usual endorsement of SI in that there was a plan and means. Lee denies patient has prior suicide attempts. Lee states patient is experiencing "drama" with their sister, Cleo, who uses patient's home "over his head" (it was left to patient after mother's but Cleo "controls" the home). Clinician contacted Ann [phone] who verified patient sent the text message. Ann states patient threatened to "blow my brains out" or hang himself from a tree. Patient requested that no one come to his . Clinician discussed information with patient. Patient admits he sent picture of his gun, and stated he "always" does that. Patient minimized and deflected to losing his job, feeding his dog, and etc when confronted with his behavior. Clinician informed patient that suicide is taken seriously. Patient states he has depression, but that's between him and God. Clinician discussed patient's current circumstance and provided patient with evidence that suggests help is needed. Patient was informed of IVC petition. Patient became upset and would not engage with clinician further. Patient is alert and oriented to person, place, time and circumstance. Mood is irritable with congruent affect as evidenced by lack of engagement. Patient denies suicidal and homicidal ideations. Delusions are absent and behavior is congruent with an intact reality based presentation (i.e., organized and linear through processes). There is no observed behavior that suggests patient is responding to internal stimuli. Patient is able to engage in organized, rational thought processes. Patient is able to express needs and wants in a logical manner. Patient denies current auditory and visual hallucinations. Eye contact is appropriate. Conversational speech is within normal rate, tone, and prosody. Intellectual ability appears to be within average range. Attention and concentration are fair. Insight, judgment and impulse control are currently poor. Impression/Plan: Patient is recommended for IVC. Patient attempts to minimize and deflect current circumstance. Patient exhibits limited insight and judgment into his current circumstance. Patient has a history of passive suicidal ideation, however this is the first time patient's behavior has escalated to the point family has been concerned. Patient is considered to be a danger to himself. Plan is to find appropriate placement. Referral packet was sent to [facility]. Dr. Teresa was consulted on the care and management of this patient; attending physician is in agreement with recommendations and disposition.
[2020-01-30] MEDS ORDERED: ALBUTEROL SULFATE HFA (90 MCG/PUFF) 8 GM MDI (1 MDI/ER DISP) IH PRN (09:21)
[2020-01-30 09:27] VITALS: BP 110/78
--- NOTE | 2020-01-30 09:27 | ER Document Report ---
Doctor's Note Notes: 01/30/20 09:05 PHYSICAL EXAMINATION: GENERAL: Well-appearing and in no acute distress. HEAD: Atraumatic, normocephalic. EYES: sclera anicteric, conjunctiva are normal. ENT: nares patent. Moist mucous membranes. NECK: Normal range of motion, supple without lymphadenopathy LUNGS: Patient with dry cough, wheezing only with cough, respirations unlabored HEART: Regular rate and rhythm without murmurs ABDOMEN: Soft, nontender, normal bowel sounds, no guarding. EXTREMITIES: Normal range of motion, No cyanosis. BACK: No midline tenderness, no step-off or deformity. No CVA tenderness NEUROLOGICAL: Cranial nerves grossly intact. Normal speech. Normal gait. PSYCH: Patient appears upset, states that he does not want to be transferred anyone SKIN: Warm, Dry, normal turgor, no rashes or lesions noted Reviewed patient's diagnostic test results and labs. Patient is requesting that his usual medications be restarted which include albuterol, lisinopril and atorvastatin. RN advised that she could hold his dose of the lisinopril at this time as his pressure is normal at this time. Patient appears medically stable for discharge or transfer pending mental health team disposition. 01/30/20 11:26 Patient has been accepted to the [facility], patient is medically clear for transfer at this time. Transport team is here for patient.
[2020-01-30] MEDS ORDERED: CITALOPRAM HYDROBROMIDE 20 MG TABLET PO SCH (10:00)
[2020-01-30] MEDS ORDERED: LISINOPRIL 5 MG TABLET PO SCH (10:00)
--- NOTE | 2020-01-30 11:10 | PSYCHOLOGICAL NOTE ---
Psych Note - Psych Note Date seen by psych provider: 01/30/20 Time seen by psych provider: 10:30 Psych Note: Check in conducted with patient. Patient was tearful as he spoke about being removed from his family at the age of 4, reconnecting with his mother at age 16, his mother's in 2018, his brother's in 2019, and his fiance leaving him in 2019. Patient continues to deny text messages and picture of his shotgun were related to an active plan to commit suicide. Patient spoke of not "feeling" loved or supported by his family. Clinician used Rogerian techniques to attempt to link his current circumstance with his emotional pain. Patient was receptive. Patient expressed concerns with losing his job, paying his electricity bill and his rent. Clinician engaged patient in problem solving strategies to resolve those concerns. Provided patient with psychoeducation CBT techniques to identify "stinkin thinkin" thoughts and engaged patient in healthy positive thought. Patient was informed of acceptance by [facility] and transportation process. Patient requested his brother in law, Mr. Dee, be notified of his placement. Clinician attempted twice to contact. Voicemail not not set up. Impression/Plan: Patient was accepted for placement at [facility]. Dr. Teresa was consulted on the care and management of this patient; attending physician is in agreement with recommendations and disposition.
[2020-01-30] MEDS ORDERED: ATORVASTATIN CALCIUM 20 MG TABLET PO SCH (18:00)
== END 2020-01-30 11:31 ==
LOC: ER 23:11
DX: F32.9 Major depressive disorder, single episode, unspecified (principal); R45.851 Suicidal ideations; F10.120 Alcohol abuse with intoxication, uncomplicated; Y90.6 Blood alcohol level of 120-199 mg/100 ml; R05 Cough; J44.9 Chronic obstructive pulmonary disease, unspecified; I10 Essential (primary) hypertension; F17.200 Nicotine dependence, unspecified, uncomplicated; I25.10 Atherosclerotic heart disease of native coronary artery without angina pectoris; E78.00 Pure hypercholesterolemia, unspecified; E78.5 Hyperlipidemia, unspecified; Z79.899 Other long term (current) drug therapy; Z63.4 Disappearance and death of family member; Z88.0 Allergy status to penicillin
CPT/HCPCS: 93005; 94640; 99285; 36415; 80307 ×4; 84443; 83655; 83825; 85025; 80053; 81001; 82390; 82175; 93010; J3490

== ENCOUNTER 2020-03-14 10:04 | Emergency (ER) | payer SELFPAY ==
--- NOTE | 2020-03-14 11:33 | ER Document Report ---
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 Patient states that the tightness in his chest is actually pretty much unchanged from his baseline. States that he has this whenever he works in the factory around [employer] and nobody is ever been able to figure out what it comes from. 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 Patient is concerned he may have been exposed to the novel coronavirus. TRAVEL OUTSIDE OF THE [place] IN LAST 30 DAYS: No - Related Data Allergies/Adverse Reactions: Penicillins Allergy (Verified 01/28/20 23:26) Past Medical History - General Information source: Patient - Social History Smoking Status: Current Every Day Smoker Chew tobacco use (# tins/day): Yes Frequency of alcohol use: None Drug Abuse: None Family History: Arthritis, CAD, COPD, DM, Hyperlipidemia, Hypertension - Past Medical History Cardiac Medical History: Reports: Hx Coronary Artery Disease, Hx Hypercholesterolemia, Hx Hypertension Pulmonary Medical History: Reports: Hx Bronchitis, Hx COPD, Hx Pneumonia Neurological Medical History: Denies: Hx Seizures Renal/ Medical History: Reports: Hx Kidney Stones. 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 , Reports Hx Musculoskeletal Trauma Traumatic Medical History: Reports: Hx Fractures - left 5th finger Past Surgical History: Reports: Hx Cardiac Catheterization - negative in 2011, Hx Orthopedic Surgery - corrective surgery for feet - Immunizations Immunizations up to date: Yes Hx Diphtheria, Pertussis, Tetanus Vaccination: Yes - 08/04/17 Review of Systems - Review of Systems Constitutional: Chills, Diaphoresis. denies: Fever EENT: See HPI, Throat pain, Vertigo Cardiovascular: See HPI, Chest pain, Dizziness Respiratory: See HPI, Cough, Short of breath Gastrointestinal: See HPI, Nausea, Vomiting - Posttussive emesis. Genitourinary: No symptoms reported Neurological/Psychological: See HPI, Other - Dizziness. -: Yes All other systems reviewed and negative Physical Exam - Vital signs Vitals: Temp 98.6 F 03/14/20 10:04 - Notes Notes: GENERAL: Alert, interacts well. No acute distress. HEAD: Normocephalic, atraumatic EYES: Pupils equal, round and reactive to light, extraocular movements intact. ENT: Oral mucosa moist, tongue midline. NECK: Full range of motion, supple, trachea midline. LUNGS: Clear to auscultation bilaterally, no wheezes, rales or rhonchi, no respiratory distress. HEART: Regular rate and rhythm, no murmurs, gallops, rubs. ABDOMEN: Soft, nontender, nondistended, bowel sounds present in all 4 quadrants. EXTREMITIES: Moves all 4 extremities spontaneously, no edema, radial and dorsa lis pedis pulses 2/4 bilaterally. No cyanosis. 5 out of 5 muscle strength in all 4 extremities. NEUROLOGICAL: Alert and oriented x3, normal speech, cranial nerves II through XII grossly intact, finger-nose and [id number] testing intact, [place]-Hallpike maneuver negative bilaterally, does have some increased dizziness upon sitting up. PSYCH: Normal mood, normal affect. SKIN: Warm, Dry, normal turgor, no rashes or lesions noted. Course - Re-evaluation Re-evalutation: 03/14/20 13:48 CBC shows slight leukocytosis at 11.0, CMP unremarkable, troponin is negative despite over 24 hours of chest pain/tightness. It is important to note that this is the same pain/tightness that he always has when he works. Flu and strep swabs are negative. COVID-19 swabs are pending. Chest x-ray is unremarkable. Vital signs are normal without any tachypnea, tachycardia or hypoxia. No indication for admission. No signs that this patient would benefit from steroids or antibiotics. Patient will be discharged to home, has been informed that he will be required to self quarantine until his COVID swab is back and the health department clears him. Patient will return for shortness of breath or new or concerning symptoms. Doubt stroke as etiology for his dizziness as it is intermittent not constant and worsens when he sits up. Patient was given IV fluids to help with the dizziness. Patient is eager to leave at this point. - Vital Signs Vital signs: Temp Pulse Resp BP Pulse Ox 98.6 F 21 H 122/89 H 96 03/14/20 10:04 03/14/20 11:01 03/14/20 11:00 03/14/20 11:01 - Laboratory Result Diagrams: 03/14/20 10:50 03/14/20 10:50 Laboratory results interpreted by me: 03/14/20 03/14/20 10:50 10:50 WBC 11.0 H RDW 14.5 H Lymph % (Auto) 11.1 L Absolute Neuts (auto) 8.9 H Seg Neutrophils % 81.0 H Sodium 135.9 L - EKG Interpretation by Me Additional EKG results interpreted by me: 03/14/20 12:07 EKG shows sinus rhythm at a rate of 70, normal axis, normal intervals, no ST segment elevations or depressions, T wave flattening in aVF, inversions in lead III per my interpretation. Discharge - Discharge Clinical Impression: Pharyngitis with viral syndrome Condition: Stable Disposition: HOME, SELF-CARE Additional Instructions: Today your chest x-ray did not show any signs of pneumonia. Your flu swabs were negative. I suspect your cough is coming from a viral infection. Your oxygen level is not so low that you need to be admitted. I would like you to use your albuterol inhaler, 2 puffs every 4 hours as needed to decrease cough or improve your breathing. If you have to use it more often than every 4 hours, if simply walking across the room makes you feel like you are going to pass out or like you just walked up 2 flights of steps please return to the emergency department. Please let any healthcare personnel that you see know that you have been tested for coronavirus. This includes if you need to return to the emergency department. Please use nasal saline rinses such as a NetiPot or NeilMed Sinus Rinses. Please use nasal steroid such as Nasonex 1 squirt per nostril twice a day to decrease inflammation and swelling. Please also use [id number] deconges tants according to their directions on the box such as Sudafed during the day and Benadryl at night. You were tested for coronavirus (COVID 19) but these results may take 7 days or more to come back. Please stay in your house until they are resulted back or until you have been completely symptom-free for at least 3 days. Forms: Return to Work Referrals: DANIEL STOKES MD [Primary Care Provider] - Follow up as needed
[2020-03-14 11:38] LABS: ABSOLUTE BASOPHILS # (AUTO) 0.1 10^3/uL (0.0-0.2); ABSOLUTE EOSINOPHILS # (AUTO) 0.1 10^3/uL (0.0-0.6); ABSOLUTE LYMPHOCYTES (AUTO) 1.2 10^3/uL (0.5-4.7); ABSOLUTE MONOCYTES (AUTO) 0.7 10^3/uL (0.1-1.4); ABSOLUTE NEUT (AUTO) 8.9 10^3/uL (1.7-8.2); BASOPHILS % (AUTO) 0.6 % (0-2); EOSINOPHILS % (AUTO) 0.5 % (0-6); HEMATOCRIT 45.4 % (37.9-51.0); HEMOGLOBIN 16.1 g/dL (13.5-17.0); LYMPHOCYTES % (AUTO) 11.1 % (13-45); MEAN CORPUSCULAR HEMOGLOBIN 31.4 pg (27.0-33.4); MEAN CORPUSCULAR HGB CONC 35.4 g/dL (32.0-36.0); MEAN CORPUSCULAR VOLUME 89 fl (80-97); MONOCYTES % (AUTO) 6.8 % (3-13); PLATELET COUNT 173 10^3/uL (150-450); RED BLOOD COUNT 5.12 10^6/uL (4.35-5.55); RED CELL DISTRIBUTION WIDTH 14.5 % (11.5-14.0); TOTAL CELLS COUNTED % (AUTO) 100 %
[2020-03-14 11:42] LABS: ALBUMIN 4.3 g/dL (3.5-5.0); ALKALINE PHOSPHATASE 76 U/L (38-126); ANION GAP 9 (5-19); ASPARTATE AMINO TRANSFERASE 27 U/L (17-59); BILIRUBIN,TOTAL 0.5 mg/dL (0.2-1.3); BLOOD UREA NITROGEN 16 mg/dL (7-20); CALCIUM 9.4 mg/dL (8.4-10.2); CARBON DIOXIDE 22 mmol/L (22-30); CHLORIDE 105 mmol/L (98-107); CREATINE KINASE 76 U/L (55-170); GLUCOSE 103 mg/dL (75-110); POTASSIUM 4.6 mmol/L (3.6-5.0)
[2020-03-14 11:54] LABS: CREATINE KINASE MB 0.96 ng/mL (<4.55)
[2020-03-14 11:58] LABS: TROPONIN I < 0.012 ng/mL
--- NOTE | 2020-03-14 12:38 | RADIOLOGY REPORT (SQ) ---
EXAM DESCRIPTION: CHEST 2 VIEWS IMAGES COMPLETED DATE/TIME: 03/14/2020 12:17 pm REASON FOR STUDY: cough, COPD, SOB COMPARISON: 06/28/2018 EXAM PARAMETERS: NUMBER OF VIEWS: two views TECHNIQUE: Digital Frontal and Lateral radiographic views of the chest acquired. RADIATION DOSE: NA LIMITATIONS: none FINDINGS: LUNGS AND PLEURA: No opacities, masses or pneumothorax. No pleural effusion. MEDIASTINUM AND HILAR STRUCTURES: No masses or contour abnormalities. HEART AND VASCULAR STRUCTURES: Heart normal size. No evidence for failure. BONES: No acute findings. HARDWARE: None in the chest. OTHER: No other significant finding. IMPRESSION: NO ACUTE RADIOGRAPHIC FINDING IN THE CHEST. TECHNICAL DOCUMENTATION: JOB ID: [id number] 2010 [employer]- All Rights Reserved Reading location - IP/workstation name: [email or web address]
[2020-03-14 12:43] LABS: A TYPE INFLUENZA AG NEGATIVE (NEGATIVE); B INFLUENZA AG NEGATIVE (NEGATIVE)
[2020-03-14 13:51] VITALS: BP 111/95
--- NOTE | 2020-03-14 23:55 | EKG REPORT ---
SEVERITY:- BORDERLINE ECG - SINUS RHYTHM BORDERLINE T ABNORMALITIES, INFERIOR LEADS : Confirmed by: Jono Clemente 14-Mar-2020 23:55:10
--- NOTE | 2020-03-14 23:55 | EKG REPORT ---
SEVERITY:- DEFECTIVE ECG - RIGHT AND LEFT ARM LEADS REVERSED, PLEASE REPEAT ECG : Confirmed by: Jono Clemente 14-Mar-2020 23:55:20
== END 2020-03-14 14:29 | disposition home or self-care (01) ==
LOC: ER 10:04
DX: J02.9 Acute pharyngitis, unspecified (principal); B34.9 Viral infection, unspecified; R06.02 Shortness of breath; R05 Cough; R11.2 Nausea with vomiting, unspecified; R61 Generalized hyperhidrosis; R68.83 Chills (without fever); R42 Dizziness and giddiness; R07.89 Other chest pain; I25.10 Atherosclerotic heart disease of native coronary artery without angina pectoris; I10 Essential (primary) hypertension; J44.9 Chronic obstructive pulmonary disease, unspecified; F17.200 Nicotine dependence, unspecified, uncomplicated; Z20.828 Contact with and (suspected) exposure to other viral communicable diseases; Z87.01 Personal history of pneumonia (recurrent)
CPT/HCPCS: 36415; 71046; 80053; 82550; 82553; 84484; 85025; 87070; 87635; 87804; 87880; 93005; 93010; 99283

== ENCOUNTER 2020-04-05 10:29 | Emergency (ER) | payer SELFPAY ==
[2020-04-05 10:34] VITALS: BP 110/71
[2020-04-05] MEDS ORDERED: METHOCARBAMOL 750 MG TABLET PO ONE (10:40)
--- NOTE | 2020-04-05 11:01 | ER Document Report ---
HPI - HPI Time Seen by Provider: 04/05/20 10:36 Pain Level: 5 Notes: Patient is a 49-year-old male presenting to the emergency department chief complaint of left shoulder pain. Patient reports approximately 1 week ago he woke up in the morning with pain in his left lateral neck that radiated down into his left shoulder. He states the pain is worse with movement. He denies any direct trauma or injury. He states it feels like it may be a strained muscle. He has been taking ibuprofen and BC powder for the pain. He reports some relief of the pain with ibuprofen. Denies any chest pain or shortness of breath. - CONSTITUTIONAL Constitutional: DENIES: Fever, Chills - MUSCULOSKELETAL Musculoskeletal: REPORTS: Extremity pain Past Medical History - General Information source: Patient - Social History Smoking Status: Current Every Day Smoker Frequency of alcohol use: None Drug Abuse: None Family History: Arthritis, CAD, COPD, DM, Hyperlipidemia, Hypertension Patient has homicidal ideation: No - Past Medical History Cardiac Medical History: Reports: Hx Coronary Artery Disease, Hx Hypercholesterolemia, Hx Hypertension Pulmonary Medical History: Reports: Hx Bronchitis, Hx COPD, Hx Pneumonia Neurological Medical History: Denies: Hx Seizures Renal/ Medical History: Reports: Hx Kidney Stones. 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 HEAD: Atraumatic, normocephalic. EYES: Pupils equal round extraocular movements intact, conjunctiva are normal. ENT: Nares patent NECK: Normal range of motion LUNGS: No respiratory distress Musculoskeletal: Normal range of motion to left shoulder, tenderness over the posterior left shoulder up into the left lateral neck. No crepitus or deformity. No vertebral tenderness or deformity. NEUROLOGICAL: Normal speech, normal gait. PSYCH: Normal mood, normal affect. SKIN: Warm, Dry, normal turgor, no rashes or lesions noted. - INFECTION CONTROL TRAVEL OUTSIDE OF THE [place] IN LAST 30 DAYS: No Course - Re-evaluation Re-evalutation: Shoulder X-Ray 04/05/20 10:40 IMPRESSION: NEGATIVE STUDY OF THE LEFT SHOULDER. NO RADIOGRAPHIC EVIDENCE OF ACUTE INJURY. X-ray negative as outlined above. Exam and history most consistent with musculoskeletal strain. Patient will be given a course of Robaxin. He will be encouraged to follow-up with either his primary care provider or orthopedics if pain not improved. - Vital Signs Vital signs: Temp Pulse Resp BP Pulse Ox 98.0 F 76 16 110/71 98 04/05/20 10:35 04/05/20 10:33 04/05/20 10:33 04/05/20 10:33 04/05/20 10:33 Discharge - Discharge Clinical Impression: Muscle strain Left shoulder pain Qualifiers: Chronicity: acute Qualified Code(s): M25.512 - Pain in left shoulder Condition: Stable Disposition: HOME, SELF-CARE Additional Instructions: Your x-ray today was normal. This is likely a strain of the muscles that overlie your shoulder. Please take the muscle relaxer as prescribed. Please do not take more than 800 mg of ibuprofen every 8 hours. Please use caution with using excessive amounts of BC powder. Your pain should improve over the next 3 to 5 days. If your pain does not improve please follow-up with either your primary care provider or an orthopedic doctor. I have given you the phone number of an orthopedic doctor to follow-up with below. Prescriptions: Methocarbamol [Robaxin 750 mg Tablet] 750 mg PO Q4 #30 tablet Forms: Special Work Note Referrals: LUPE VARGAS DO [ACTIVE STAFF] - Follow up as needed KATIE CARSON JR, DO [ACTIVE PROVISIONAL STAFF] - Follow up as needed
--- NOTE | 2020-04-05 11:07 | RADIOLOGY REPORT (SQ) ---
EXAM DESCRIPTION: SHOULDER LEFT 2 OR MORE VIEWS IMAGES COMPLETED DATE/TIME: 04/05/2020 10:54 am REASON FOR STUDY: pain, anterior shoulder, no injury COMPARISON: 05/13/2012 NUMBER OF VIEWS: Three views. TECHNIQUE: Internal rotation, external rotation, and Y view images acquired of the left shoulder. LIMITATIONS: None. FINDINGS: MINERALIZATION: Normal. BONES: No acute fracture. No worrisome bone lesions. JOINTS: No dislocation. VISUALIZED LUNGS AND RIBS: No pneumothorax. No rib fracture. SOFT TISSUES: No radiopaque foreign body. OTHER: No other significant finding. IMPRESSION: NEGATIVE STUDY OF THE LEFT SHOULDER. NO RADIOGRAPHIC EVIDENCE OF ACUTE INJURY. TECHNICAL DOCUMENTATION: JOB ID: [id number] 2010 [employer]- All Rights Reserved Reading location - IP/workstation name: [email or web address]
== END 2020-04-05 11:26 | disposition home or self-care (01) ==
LOC: ER 10:29
DX: S46.912A Strain of unspecified muscle, fascia and tendon at shoulder and upper arm level, left arm, initial encounter (principal); M54.2 Cervicalgia; X58.XXXA Exposure to other specified factors, initial encounter; F17.200 Nicotine dependence, unspecified, uncomplicated; I25.10 Atherosclerotic heart disease of native coronary artery without angina pectoris; E78.00 Pure hypercholesterolemia, unspecified; I10 Essential (primary) hypertension; J44.9 Chronic obstructive pulmonary disease, unspecified; Z87.442 Personal history of urinary calculi
CPT/HCPCS: 99283; 73030; J3490